=== PATIENT | male | born 1940 | race Caucasian/White ===

== ENCOUNTER 2016-11-09 03:18 | Emergency (ER) | payer BC, OTHER ==
[~2016-11-09] VITALS: Ht 160 cm; Wt 104.3 kg
[2016-11-09 05:27] LABS: Basophils # (auto) 0 uL; Basophils % (auto) 0.3 % (0.0-2.0); Eosinophils # (auto) 0.3 uL; Eosinophils % (auto) 4.5 % (0.0-7.0); Hematocrit 45.1 % (41.0-53.0); Hemoglobin 15.5 g/dL (13.5-17.5); Lymphocytes # (auto) 2.2 uL; Lymphocytes % (auto) 32.5 % (10.0-50.0); Mean Corpuscular Hemoglobin 31.1 pg (28.0-32.0); Mean Corpuscular Hgb Conc. 34.4 g/dL (32.0-36.0); Mean Corpuscular Volume 90.2 fL (80.0-100.0); Mean Platelet Volume 9.2 fL (6.9-10.8); Monocytes # (auto) 0.4 uL; Monocytes % (auto) 5.5 % (0.0-12.0); Neutrophils # (auto) 3.9 uL; Neutrophils % (auto) 57.2 % (37.0-80.0); Nucleated Red Blood Cells % 0.1 %; Platelet Count (auto) 109 10^3/uL (140-450); Red Cell Distribution Width 15.6 % (11.8-14.3); White Blood Cell 6.8 10^3/uL (4.4-10.8)
[2016-11-09 05:41] LABS: INR 1.04 (0.9-1.15); Prothrombin Time 11.3 sec (9.37-12.3)
[2016-11-09 05:45] LABS: Albumin 3.3 g/dL (3.4-5.0); Anion Gap 6 (5-15); Aspartate Aminotransferase 20 U/L (15-37); BUN/Creatinine Ratio 13.3; Blood Urea Nitrogen 13 mg/dL (7-18); Calcium 8.9 mg/dL (8.5-10.1); Carbon Dioxide 27 mmol/L (21-32); Chloride 110 mmol/L (98-107); GFR African American 95 mL/min; GFR Non-African American 79 mL/min; Glucose 88 mg/dL (74-106); Magnesium 2.2 mg/dL (1.6-2.6); Potassium 3.8 mmol/L (3.5-5.1); Sodium 143 mmol/L (136-145)
[2016-11-09 05:50] LABS: Alkaline Phosphatase 83 U/L (45-117); Bilirubin, Total 0.6 mg/dL (0.2-1.0); Total Protein 6.8 g/dL (6.4-8.2)
[2016-11-09 05:52] LABS: B-Type Natriuretic Peptide 71.57 pg/mL (0-100); Temperature: 20.7 C (20.0-25.0)
[2016-11-09] MEDS ORDERED: IOHEXOL 350 MG/ML 100ML IJ ONE (08:04)
[2016-11-09] MEDS ORDERED: ASPirin 81 mg TAB PO ONE (09:30)
[2016-11-09 10:43] VITALS: BP 135/75
== END 2016-11-09 10:41 | disposition home or self-care (01) ==
LOC: EDBD 03:18 → EDUNIT# 03:18 → ER 03:27
DX: R07.89 Other chest pain (principal); Z87.440 Personal history of urinary (tract) infections; Z90.49 Acquired absence of other specified parts of digestive tract
CPT/HCPCS: 36415; 71010; 71275; 80053; 83735; 83880; 84443; 84484; 85025; 85379; 85610; 85730; 93005; 94761; 99285; Q9967

== ENCOUNTER 2020-02-05 17:05 | Emergency (ER) | payer BC ==
[~2020-02-05] VITALS: Ht 172.7 cm; Wt 109.8 kg
[2020-02-05 22:38] VITALS: BP 136/82
== END 2020-02-05 22:36 | disposition home or self-care (01) ==
LOC: ER 17:12
DX: Z46.6 Encounter for fitting and adjustment of urinary device (principal); N30.00 Acute cystitis without hematuria; I10 Essential (primary) hypertension
CPT/HCPCS: 51705; 81002

== ENCOUNTER 2021-03-15 09:01 | Emergency (ER) | payer BC ==
[~2021-03-15] VITALS: Ht 175.3 cm; Wt 77.1 kg
[2021-03-15 09:22] VITALS: BP 114/75
[2021-03-15] MEDS ORDERED: ACET-1080 PO (10:06)
== END 2021-03-15 11:34 | disposition home or self-care (01) ==
LOC: ER 09:01
DX: S63.284A Dislocation of proximal interphalangeal joint of right ring finger, initial encounter (principal); I10 Essential (primary) hypertension; Z90.49 Acquired absence of other specified parts of digestive tract; W06.XXXA Fall from bed, initial encounter; Y93.89 Activity, other specified; Y92.89 Other specified places as the place of occurrence of the external cause; Y99.8 Other external cause status
CPT/HCPCS: 26770; 73120

== ENCOUNTER 2021-04-08 14:03 | Emergency (ER) | payer BC, OTHER ==
[~2021-04-08] VITALS: Ht 170.2 cm; Wt 86.2 kg
[~2021-04-08 14:03] MED LIST: ACET-1080 PO
[2021-04-08 14:55] LABS: Basophils # (auto) 0 10 ^3/uL (0-0.2); Basophils % (auto) 0.3 % (0.0-2.0); Eosinophils # (auto) 0.4 10 ^3/uL (0-0.8); Eosinophils % (auto) 4.7 % (0.0-7.0); Hematocrit 40.3 % (41.0-53.0); Hemoglobin 13.5 g/dL (13.5-17.5); Lymphocytes # (auto) 3.3 10 ^3/uL (0.4-5.4); Lymphocytes % (auto) 38.6 % (10.0-50.0); Mean Corpuscular Hemoglobin 27.7 pg (28.0-32.0); Mean Corpuscular Hgb Conc. 33.6 g/dL (32.0-36.0); Mean Corpuscular Volume 82.2 fL (80.0-100.0); Monocytes # (auto) 0.4 10 ^3/uL (0-1.3); Monocytes % (auto) 4.9 % (0.0-12.0); Neutrophils # (auto) 4.3 10 ^3/uL (1.6-8.6); Neutrophils % (auto) 51.5 % (37.0-80.0); Nucleated Red Blood Cells % 0.1 %; Red Cell Distribution Width 17.4 % (11.8-14.3); White Blood Cell 8.5 10^3/uL (4.4-10.8)
[2021-04-08 15:06] LABS: Albumin 2.7 g/dL (3.4-5.0); BUN/Creatinine Ratio 17.7; Calcium 8.4 mg/dL (8.5-10.1); Magnesium 2.3 mg/dL (1.6-2.6); Potassium 3.8 mmol/L (3.5-5.1)
[2021-04-08 15:11] LABS: Bilirubin, Total 0.4 mg/dL (0.2-1.0); Total Protein 6.7 g/dL (6.4-8.2)
[2021-04-08 20:20] VITALS: BP 121/68
== END 2021-04-08 20:22 | disposition home or self-care (01) ==
LOC: EDBD 14:03 → ER 14:03
DX: R07.89 Other chest pain (principal); I10 Essential (primary) hypertension; Z90.49 Acquired absence of other specified parts of digestive tract; Z87.891 Personal history of nicotine dependence; Z79.899 Other long term (current) drug therapy
CPT/HCPCS: 36415; 71045; 80053; 83735; 83880; 84484; 85025; 93005

== ENCOUNTER 2021-06-24 19:05 | Inpatient (IN) | payer BC ==
[~2021-06-24] VITALS: Ht 170.2 cm; Wt 100.1 kg
[2021-06-24 21:02] LABS: Basophils # (auto) 0 10 ^3/uL (0-0.2); Basophils % (auto) 0.3 % (0.0-2.0); Eosinophils # (auto) 0 10 ^3/uL (0-0.8); Eosinophils % (auto) 0.3 % (0.0-7.0); Hematocrit 43.5 % (41.0-53.0); Hemoglobin 14.7 g/dL (13.5-17.5); Lymphocytes # (auto) 2.1 10 ^3/uL (0.4-5.4); Lymphocytes % (auto) 19.8 % (10.0-50.0); Mean Corpuscular Hemoglobin 27.4 pg (28.0-32.0); Mean Corpuscular Hgb Conc. 33.7 g/dL (32.0-36.0); Mean Corpuscular Volume 81.2 fL (80.0-100.0); Monocytes # (auto) 0.6 10 ^3/uL (0-1.3); Monocytes % (auto) 5.8 % (0.0-12.0); Neutrophils # (auto) 7.9 10 ^3/uL (1.6-8.6); Neutrophils % (auto) 73.8 % (37.0-80.0); Red Blood Cells 5.35 10^6/uL (4.5-5.90); Red Cell Distribution Width 16.7 % (11.8-14.3); White Blood Cell 10.7 10^3/uL (4.4-10.8)
[2021-06-24 21:16] LABS: Calcium 8.4 mg/dL (8.5-10.1); Potassium 3.9 mmol/L (3.5-5.1)
[2021-06-24 21:20] LABS: BUN/Creatinine Ratio 21.9; Bilirubin, Total 0.9 mg/dL (0.2-1.0); Total Protein 6.9 g/dL (6.4-8.2)
[2021-06-25 02:07] LABS: Urine Bacteria MOD /hpf (None Seen); Urine Blood 1+ /uL (Negative); Urine Mucus FEW (None Seen); Urine Specific Gravity 1.017 (1.001-1.035); Urine WBC 487 /hpf (0 - 3); Urine WBC Clumps PRESENT /hpf (None Seen)
[2021-06-25] MEDS ORDERED: cefTRIAXone 1GM/50ML D5W 50 ML IV ONE (02:15)
[2021-06-25 02:17] LABS: Alcohol, Urine < 3.0 mg/dL (0-10); Amphetamine Screen, Urine NEGATIVE (NEGATIVE); Benzodiazephine Screen, Urine NEGATIVE (NEGATIVE); Cannabinoid Screen, Urine NEGATIVE (NEGATIVE); Cocaine Screen, Urine NEGATIVE (NEGATIVE); Opiate Scree,Urine NEGATIVE (NEGATIVE); Phencyclidine Screen, Urine NEGATIVE (NEGATIVE)
[2021-06-25 02:38] LABS: Barbiturate Scree,Urine NEGATIVE (NEGATIVE)
[2021-06-25] MEDS ORDERED: ACETAMINOPHEN 325 MG TAB PO PRN (04:00)
[2021-06-25] MEDS ORDERED: ONDANSETRON HCL 4 MG/2 ML VIAL IV PRN (04:00)
[2021-06-25] MEDS: HCTZ 25 MG TAB PO SCH (10:13)
[2021-06-25] MEDS: MEMANTINE HCL 5 MG TAB PO SCH ×2 (10:13→21:36)
[2021-06-25] MEDS: PANTOPRAZOLE 40 MG TAB PO SCH (10:13)
[2021-06-25] MEDS: METOPROLOL SUCCINATE XL 50 MG TAB PO SCH (10:13)
[2021-06-25] MEDS: ENOXAPARIN SOD 40 MG/0.4 ML SYRINGE SC SCH (10:14)
[2021-06-25 13:00] VITALS: BP 127/60
[2021-06-25 16:10] VITALS: BP 116/74
[2021-06-25 22:00] VITALS: BP 115/61
[2021-06-25] MEDS ORDERED: DONEPEZIL HYDROCHLORIDE 5 MG TAB PO SCH (22:00)
[2021-06-25] MEDS ORDERED: LORazepam 2MG/ML-1ML VIAL IV PRN (22:15)
[2021-06-25 23:42] LABS: Folate (Folic Acid) 8.76 ng/mL (5.38-24)
[2021-06-26] VITALS (7 sets, daily range): BP systolic 108–122; BP diastolic 47–62
[2021-06-26 06:17] LABS: Basophils # (auto) 0 10 ^3/uL (0-0.2); Basophils % (auto) 0.2 % (0.0-2.0); Eosinophils # (auto) 0.2 10 ^3/uL (0-0.8); Eosinophils % (auto) 2.3 % (0.0-7.0); Hematocrit 39.7 % (41.0-53.0); Hemoglobin 13.4 g/dL (13.5-17.5); Lymphocytes # (auto) 1.8 10 ^3/uL (0.4-5.4); Lymphocytes % (auto) 24.9 % (10.0-50.0); Mean Corpuscular Hemoglobin 27.6 pg (28.0-32.0); Mean Corpuscular Hgb Conc. 33.8 g/dL (32.0-36.0); Mean Corpuscular Volume 81.7 fL (80.0-100.0); Monocytes # (auto) 0.6 10 ^3/uL (0-1.3); Monocytes % (auto) 8.7 % (0.0-12.0); Neutrophils # (auto) 4.5 10 ^3/uL (1.6-8.6); Neutrophils % (auto) 63.9 % (37.0-80.0); Nucleated Red Blood Cells % 0.2 %; Red Blood Cells 4.86 10^6/uL (4.5-5.90); Red Cell Distribution Width 16.8 % (11.8-14.3)
[2021-06-26 06:27] LABS: Calcium 8.5 mg/dL (8.5-10.1); Potassium 3.3 mmol/L (3.5-5.1)
[2021-06-26 06:35] LABS: BUN/Creatinine Ratio 21.3
[2021-06-26] MEDS ORDERED: LEVO500T31 PO (07:52)
[2021-06-26] MEDS ORDERED: cefTRIAXone 1GM/50ML D5W 50 ML IV SCH (09:00)
[2021-06-26] MEDS: ENOXAPARIN SOD 40 MG/0.4 ML SYRINGE SC SCH (09:06)
[2021-06-26] MEDS: METOPROLOL SUCCINATE XL 50 MG TAB PO SCH (09:07)
[2021-06-26] MEDS: PANTOPRAZOLE 40 MG TAB PO SCH (09:07)
[2021-06-26] MEDS: MEMANTINE HCL 5 MG TAB PO SCH (09:07)
[2021-06-26] MEDS: HCTZ 25 MG TAB PO SCH (09:14)
[2021-06-26] MEDS ORDERED: CYANOCOBALAMIN (B-12) 1000 MCG/1 ML VIAL IM ONE (10:00)
[2021-06-26] MEDS ORDERED: ASPirin 81 mg TAB PO SCH (10:00)
[2021-06-26] MEDS ORDERED: ATORVASTATIN 20 MG TAB PO SCH (22:00)
[2021-06-27] MEDS ORDERED: CYANOCOBALAMIN 500 MCG TAB PO SCH (10:00)
== END 2021-06-26 18:27 | disposition home health service (06) | DRG 689 ==
LOC: ER 19:05 → EDBD 19:05 → WEST WING 06-25 03:47 → OVERFLOW 06-25 04:22 → EAST 06-25 13:15
PROVIDERS: ADMIT Nurse Practitioner; ATTEND Internal Medicine Pulmonary Disease
DX: N39.0 Urinary tract infection, site not specified (principal); G93.41 Metabolic encephalopathy; F03.90 Unspecified dementia, unspecified severity, without behavioral disturbance, psychotic disturbance, mood disturbance, and anxiety; I10 Essential (primary) hypertension; R62.7 Adult failure to thrive; Z20.822 Contact with and (suspected) exposure to COVID-19; R26.2 Difficulty in walking, not elsewhere classified; Z79.899 Other long term (current) drug therapy; Z82.3 Family history of stroke; Z82.49 Family history of ischemic heart disease and other diseases of the circulatory system; Z83.3 Family history of diabetes mellitus; Z93.59 Other cystostomy status; Z90.49 Acquired absence of other specified parts of digestive tract
CPT/HCPCS: 36415; 70450; 70551; 71045; 80048; 80053; 80061; 80307; 81001; 82140; 82607; 82746; 83090; 83735; 84443; 84484; 85025; 87040; 87086; 87088; 87186; 93886; 95819; 96365; 96372; G0378; J0696

== ENCOUNTER 2021-11-09 09:37 | Emergency (ER) | payer BC ==
[~2021-11-09] VITALS: Ht 180.3 cm; Wt 90.9 kg
[~2021-11-09 09:37] MED LIST changes: +LEVO500T31 PO
[2021-11-09] MEDS ORDERED: SODIUM CHLORIDE 0.9% 1,000 ML IV ONE (10:15)
[2021-11-09] MEDS ORDERED: ADENOSINE 6 MG/2 ML INJ IV ONE (10:45)
[2021-11-09 10:58] LABS: Eosinophils # (auto) 0 10 ^3/uL (0-0.8); Hematocrit 48.4 % (41.0-53.0); Red Blood Cells 5.79 10^6/uL (4.5-5.90); Red Cell Distribution Width 16.4 % (11.8-14.3)
[2021-11-09 10:59] LABS: Basophils # (auto) 0 10 ^3/uL (0-0.2); Basophils % (auto) 0.4 % (0.0-2.0); Eosinophils % (auto) 0.2 % (0.0-7.0); Hemoglobin 15.8 g/dL (13.5-17.5); Lymphocytes # (auto) 1.6 10 ^3/uL (0.4-5.4); Lymphocytes % (auto) 13.2 % (10.0-50.0); Mean Corpuscular Hemoglobin 27.2 pg (28.0-32.0); Mean Corpuscular Hgb Conc. 32.6 g/dL (32.0-36.0); Mean Corpuscular Volume 83.6 fL (80.0-100.0); Monocytes # (auto) 0.7 10 ^3/uL (0-1.3); Monocytes % (auto) 5.8 % (0.0-12.0); Neutrophils # (auto) 9.6 10 ^3/uL (1.6-8.6); Neutrophils % (auto) 80.4 % (37.0-80.0); Nucleated Red Blood Cells % 0.1 %; White Blood Cell 11.9 10^3/uL (4.4-10.8)
[2021-11-09 11:14] LABS: Albumin 3.1 g/dL (3.4-5.0); Calcium 8.6 mg/dL (8.5-10.1); Magnesium 2.1 mg/dL (1.6-2.6)
[2021-11-09] MEDS ORDERED: AMIODARONE HCL 150 MG in D5W 5% 100 ML IV ONE (11:15)
[2021-11-09] MEDS ORDERED: ACETAMINOPHEN 650 MG RECT SUPP PR ONE (11:15)
[2021-11-09 11:17] LABS: Bilirubin, Total 1.2 mg/dL (0.2-1.0)
[2021-11-09] MEDS ORDERED: AMIODARONE 450mg/250ml AE 250 ML IV SCH ×2 (11:30→17:30)
[2021-11-09] MEDS ORDERED: ACETAMINOPHEN 325 MG RECT SUPP PR ONE (11:30)
[2021-11-09] MEDS ORDERED: cefTRIAXone 1GM/50ML D5W 50 ML IV ONE (12:30)
[2021-11-09 12:49] LABS: Urine Bacteria FEW /hpf (None Seen); Urine Blood 2+ /uL (Negative); Urine Specific Gravity 1.017 (1.001-1.035); Urine WBC 1466 /hpf (0 - 3); Urine WBC Clumps PRESENT /hpf (None Seen)
[2021-11-09] MEDS ORDERED: dilTIAZem 25 MG/5 ML VIAL IV ONE (15:15)
[2021-11-09] MEDS ORDERED: METOPROLOL TARTRATE 25 MG TAB PO ONE ×2 (15:15→16:30)
[2021-11-09] MEDS ORDERED: BACDST PO (16:35)
[2021-11-09] MEDS ORDERED: MET25T PO (16:35)
[2021-11-09] MEDS ORDERED: APIX5TAB PO (16:35)
[2021-11-09 17:20] VITALS: BP 115/51
== END 2021-11-09 17:32 | disposition home or self-care (01) ==
LOC: EDBD 09:37 → ER 09:37
DX: I47.1 Supraventricular tachycardia (principal); F03.90 Unspecified dementia, unspecified severity, without behavioral disturbance, psychotic disturbance, mood disturbance, and anxiety; R53.1 Weakness; I10 Essential (primary) hypertension; Z90.49 Acquired absence of other specified parts of digestive tract; Z87.891 Personal history of nicotine dependence; Z20.822 Contact with and (suspected) exposure to COVID-19
CPT/HCPCS: 36415; 70450; 71045; 80053; 81001; 83605; 83735; 84484; 85025; 87040; 87426; 93005; 96361; 96365; 96367; 96375; 99285; J0153; J0282; J0696; J7030; J7060

== ENCOUNTER 2021-11-09 20:35 | Emergency (ER) | payer BC ==
[~2021-11-09] VITALS: Ht 172.7 cm; Wt 113.0 kg
[~2021-11-09 20:35] MED LIST changes: +APIX5TAB PO; +BACDST PO; +MET25T PO
[2021-11-09] MEDS ORDERED: SODIUM CHLORIDE 0.9% 1,000 ML IV ONE ×2 (22:15→23:45)
[2021-11-09] MEDS ORDERED: PIPERACILLIN-TAZOB 3.375GM 100 ML IV ONE (23:45)
[2021-11-10] MEDS ORDERED: ACETAMINOPHEN 650 MG RECT SUPP PR ONE
[2021-11-10 00:06] LABS: Basophils # (auto) 0.2 10 ^3/uL (0-0.2); Basophils % (auto) 1.5 % (0.0-2.0); Eosinophils # (auto) 0 10 ^3/uL (0-0.8); Eosinophils % (auto) 0.4 % (0.0-7.0); Hematocrit 45.2 % (41.0-53.0); Hemoglobin 14.9 g/dL (13.5-17.5); Lymphocytes # (auto) 0.9 10 ^3/uL (0.4-5.4); Lymphocytes % (auto) 7.9 % (10.0-50.0); Mean Corpuscular Hemoglobin 27.8 pg (28.0-32.0); Mean Corpuscular Hgb Conc. 32.9 g/dL (32.0-36.0); Mean Corpuscular Volume 84.4 fL (80.0-100.0); Monocytes # (auto) 0.6 10 ^3/uL (0-1.3); Monocytes % (auto) 5.1 % (0.0-12.0); Neutrophils # (auto) 9.6 10 ^3/uL (1.6-8.6); Neutrophils % (auto) 85.1 % (37.0-80.0); Nucleated Red Blood Cells % 0.1 %; Red Blood Cells 5.35 10^6/uL (4.5-5.90); Red Cell Distribution Width 16.5 % (11.8-14.3); White Blood Cell 11.2 10^3/uL (4.4-10.8)
[2021-11-10 00:25] LABS: Albumin 2.9 g/dL (3.4-5.0); BUN/Creatinine Ratio 14.8; Calcium 8.4 mg/dL (8.5-10.1); Potassium 4.2 mmol/L (3.5-5.1)
[2021-11-10 00:27] LABS: Bilirubin, Total 1.2 mg/dL (0.2-1.0)
[2021-11-10 00:29] LABS: Lactic Acid w/Reflex 2.6 mmol/L (0.4-2.0)
[2021-11-10] MEDS ORDERED: ACETAMINOPHEN 120 MG RECT SUPP PR ONE ×2 (01:00→03:15)
[2021-11-10] MEDS ORDERED: SODIUM CHLORIDE 0.9% 1,000 ML IV ONE (10:30)
[2021-11-10] MEDS: PIPERACILLIN-TAZOB 3.375GM 100 ML IV SCH ×3 (11:39→18:26)
[2021-11-10 18:27] VITALS: BP 133/88
== END 2021-11-10 18:28 | disposition home health service (06) ==
LOC: ER 20:35 → EDBD 20:35 → ER 11-10 18:28
DX: R53.1 Weakness (principal); E86.0 Dehydration; F03.90 Unspecified dementia, unspecified severity, without behavioral disturbance, psychotic disturbance, mood disturbance, and anxiety; I10 Essential (primary) hypertension; Z90.49 Acquired absence of other specified parts of digestive tract; Z87.891 Personal history of nicotine dependence; Z79.899 Other long term (current) drug therapy; Z20.822 Contact with and (suspected) exposure to COVID-19
CPT/HCPCS: 36415; 70450; 80053; 83605; 85025; 87426; 93005; 96361; 96365; 96366; 99285; J2543; J7030

== ENCOUNTER 2023-03-13 19:05 | Emergency (ER) | payer OTHER, BC ==
[~2023-03-13] VITALS: Ht 182.9 cm; Wt 100.0 kg
[2023-03-13 20:05] VITALS: PULSE 61; RESP 16; TEMP 99; O2SAT 96
[2023-03-13 20:13] LABS: Basophils # (auto) 0 10 ^3/uL (0-0.2); Basophils % (auto) 0.3 % (0.0-2.0); Eosinophils # (auto) 0.5 10 ^3/uL (0-0.8); Eosinophils % (auto) 5.4 % (0.0-7.0); Hematocrit 43.1 % (41.0-53.0); Hemoglobin 13.9 g/dL (13.5-17.5); Lymphocytes # (auto) 3.8 10 ^3/uL (0.4-5.4); Mean Corpuscular Hemoglobin 28.7 pg (28.0-32.0); Mean Corpuscular Hgb Conc. 32.3 g/dL (32.0-36.0); Mean Corpuscular Volume 88.8 fL (80.0-100.0); Monocytes # (auto) 0.5 10 ^3/uL (0-1.3); Monocytes % (auto) 6.4 % (0.0-12.0); Neutrophils # (auto) 3.7 10 ^3/uL (1.6-8.6); Neutrophils % (auto) 43.9 % (37.0-80.0); Nucleated Red Blood Cells % 0.2 %; Red Blood Cells 4.86 10^6/uL (4.5-5.90); Red Cell Distribution Width 16.4 % (11.8-14.3); White Blood Cell 8.5 10^3/uL (4.4-10.8)
[2023-03-13 20:21] LABS: Alanine Aminotransferase 13 U/L (7-40); Albumin 3.8 g/dL (3.2-4.8); Alkaline Phosphatase 91 U/L (46-116); Anion Gap 1 (5-15); Aspartate Aminotransferase 17 U/L (13-40); BUN/Creatinine Ratio 13.3 (10.0-20.0); Bilirubin, Total 0.4 mg/dL (0.2-1.0); Blood Urea Nitrogen 16 mg/dL (9-23); Calcium 8.7 mg/dL (8.7-10.4); Carbon Dioxide 33 mmol/L (20-30); Chloride 105 mmol/L (98-107); Glucose 84 mg/dL (74-106); Lipase 27 U/L (12-53); Potassium 4.2 mmol/L (3.5-5.1); Sodium 139 mmol/L (136-145); Total Protein 6.8 g/dL (5.7-8.2)
[2023-03-13 20:44] LABS: Urine Blood 3+ /uL (Negative); Urine Clarity HAZY (Clear); Urine Color Yellow (Yellow); Urine Protein, UAD TRACE (Negative); Urine Specific Gravity 1.018 (1.001-1.035); Urine Urobilinogen Normal (Negative); Urine pH 5.5 (5.0-8.0)
[2023-03-13] MEDS: cefTRIAXone 1GM/50ML D5W 50 ML IV ONE (21:17)
[2023-03-13 21:48] VITALS: BP 134/72; PULSE 61; RESP 16; O2SAT 97
== END 2023-03-13 22:00 | disposition home or self-care (01) ==
LOC: EDBD 19:05 → ER 19:05
DX: N39.0 Urinary tract infection, site not specified (principal); R07.9 Chest pain, unspecified; I10 Essential (primary) hypertension; Z90.49 Acquired absence of other specified parts of digestive tract; Z87.891 Personal history of nicotine dependence
CPT/HCPCS: 36415; 80053; 81003; 83690; 85025; 93005; 96365; 99284; J0696

== ENCOUNTER 2024-01-21 13:33 | Inpatient (IN) | payer BC, OTHER ==
[~2024-01-21] VITALS: Ht 170.2 cm; Wt 114.1 kg
[2024-01-21] MEDS: SODIUM CHLORIDE 0.9% 500 ML IV ONE (15:12)
[2024-01-21 15:14] LABS: Basophils # (auto) 0 10 ^3/uL (0-0.2); Basophils % (auto) 0.4 % (0.0-2.0); Eosinophils # (auto) 0.2 10 ^3/uL (0-0.8); Hematocrit 37.5 % (41.0-53.0); Hemoglobin 11.9 g/dL (13.5-17.5); Lymphocytes # (auto) 1.1 10 ^3/uL (0.4-5.4); Lymphocytes % (auto) 19.9 % (10.0-50.0); Mean Corpuscular Hemoglobin 25.3 pg (28.0-32.0); Mean Corpuscular Hgb Conc. 31.7 g/dL (32.0-36.0); Mean Corpuscular Volume 79.7 fL (80.0-100.0); Monocytes # (auto) 0.3 10 ^3/uL (0-1.3); Monocytes % (auto) 5.8 % (0.0-12.0); Neutrophils % (auto) 70.9 % (37.0-80.0); Platelet Count (auto) 146 10^3/uL (140-450); Red Cell Distribution Width 17.1 % (11.8-14.3); White Blood Cell 5.6 10^3/uL (4.4-10.8)
--- NOTE | 2024-01-21 15:23 | DVH ---
CLINICAL INFORMATION: 83 years old, Male; weakness. TECHNIQUE: Single AP portable chest radiograph was obtained. COMPARISON: CHEST PORTABLE on DOS: 11/09/21, CXRP on DOS: 11/09/21, CHEST PORTABLE on DOS: 06/24/21 FINDINGS: Lungs: Atelectasis in the lung bases. No focal consolidation visualized. No pneumothorax. Left costop hrenic angle is partially obscured. Cardiac: Heart size is within normal limits. Pulmonary vasculature: Unremarkable. Mediastinum/sulaiman: Moderate atherosclerotic calcification of the aortic arch. Bones: No acute osseous abnormality identified. Other: No other significant findings. IMPRESSION: No evidence of acute disease in the chest. Nonacute findings as described above.
[2024-01-21 15:24] LABS: Urine Bacteria MANY /hpf (None Seen); Urine Blood 1+ /uL (Negative); Urine Clarity Ex.Turbid (Clear); Urine Color Dark-Brown (Yellow); Urine Mucus FEW (None Seen); Urine Protein, UAD 3+ (Negative); Urine Specific Gravity 1.014 (1.001-1.035); Urine Urobilinogen Normal (Negative); Urine WBC 3916 /hpf (0 - 3); Urine WBC Clumps PRESENT /hpf (None Seen); Urine pH 6.5 (5.0-9.0)
[2024-01-21 15:27] LABS: Potassium 3.7 mmol/L (3.5-5.1)
[2024-01-21 15:28] LABS: Anion Gap 4 (5-15); Carbon Dioxide 30 mmol/L (20-31)
[2024-01-21 15:33] LABS: BUN/Creatinine Ratio 13.1 (10.0-20.0); Blood Urea Nitrogen 16 mg/dL (9-23); Glucose 101 mg/dL (74-106)
[2024-01-21 15:34] LABS: Chloride 112 mmol/L (98-107); Sodium 146 mmol/L (136-145)
[2024-01-21 15:46] VITALS: PULSE 65; RESP 20; O2SAT 95
--- NOTE | 2024-01-21 16:26 | ED.PDOC ---
History of Present Illness HPI Comments This is an 83-year-old male who comes in with chief complaint of fever as well as altered mental status. The patient lives at home and had a temperature of approximately 103. The patient was nonverbal and bed ridden. EN route, the patient also had an Accu-Chek of 109. We attempted to interview the patient but he is altered at this time. It seems to be somewhat of his baseline. Chief Complaint: Fever Time Seen by MD: 13:51 Primary Care Provider: UNKNOWN Reviewed Notes: Nurses Notes, Blood Bank Credit Clerk Notes, Medications, Allergies (No allergies to medications) Allergies: Coded Allergies: NO KNOWN ALLERGIES (Unverified , 04/08/21) Home Meds Active Scripts Sulfamethoxazole W/Trimethopri (Bactrim Ds Tablet) 1 Tab Tb, 1 TAB PO BID for 10 Days, #20 TAB Prov:NOLAN ZENDEJAS MD 11/09/21 Apixaban Base (ELIQUIS) 5 Mg Tab, 5 MG PO BID for 30 Days, #60 TAB 1 Refill Prov:NOLAN ZENDEJAS MD 11/09/21 Metoprolol Tartrate (Lopressor) 25 Mg Tb, 25 MG PO Q12HR for 30 Days, #60 TAB 1 Refill Prov:NOLAN ZENDEJAS MD 11/09/21 Levofloxacin (Levaquin) 500 Mg Tab, 500 MG PO DAILY for 10 Days, #10 TAB Prov:NOLAN ZENDEJAS MD 06/26/21 Acetaminophen (Tylenol 8 Hour Arthritis) 650 Mg Tab, 650 MG PO TID for 10 Days, #30 TAB Prov:ROEL SPENCE 03/15/21 Information Source: Emergency Med Personnel Mode of Arrival: EMS Severity: Moderate Timing: Days Duration: Since onset Prehospital treatment: Accucheck (109), Cardiovascular Lab Director, IVF Associated signs and symptoms Associated fever with a generalized weakness Past Medical History PAST MEDICAL HISTORY: AFIB, Alzheimer, Dementia, HTN, UTI'S Surgical History: Cholecystectomy Family History Family History: Unknown Social History Smoker: Non-Smoker, Quit Greater Than 1 Year Alcohol: Denies ETOH Use Drugs: Denies Drug Use Lives In: Home Constitutional: reports: fever, weakness; denies: chills, diaphoresis, fatigue, malaise, sweats, others EENTM: denies: blurred vision, double vision, ear bleeding, ear discharge, ear drainage, ear pain, ear ringing, eye pain, eye redness, hearing loss, mouth pain, mouth swelling, nasal discharge, nose bleeding, nose congestion, nose pain, photophobia, tearing, throat pain, throat swelling, voice changes, others Respiratory: denies: cough, hemoptysis, orthopnea, SOB at rest, shortness of breath, SOB with excertion, stridor, wheezing, others Cardiovascular: denies: chest pain, dizzy spells, diaphoresis, Dyspnea on exertion, edema, irregular heart beat, left arm pain, lightheadedness, palpitations, PND, syncope, others Gastrointestinal: denies: abdomen distended, abdominal pain, blood streaked bowels, constipated, diarrhea, dysphagia, difficulty swallowing, hematemesis, melena, nausea, poor appetite, poor fluid intake, rectal bleeding, rectal pain, vomiting, others Genitourinary: denies: burning, dysuria, flank pain, frequency, hematuria, incontinence, penile discharge, penile sore, pain, testicle pain, testicle swelling, urgency, others Neurological: reports: weakness, others (Altered mental status); denies: dizziness, fainting, headache, left sided numbness, left sided weakness, numbness, paresthesia, pre-existing deficit, right sided numbness, right sided weakness, seizure, speech problems, tingling, tremors Musculoskeletal: denies: back pain, gout, joint pain, joint swelling, muscle pain, muscle stiffness, neck pain, others Integumetry: denies: bruises, change in color, change in hair/nails, dryness, laceration, lesions, lumps, rash, wounds, others Allergic/Immunocompromised: denies: Difficulty Healing, Frequent Infections, Hives, Itching, others Hematologic/Lymphatic: denies: anemia, blood clots, easy bleeding, easy bruising, swollen glands, others Endocrine: denies: excessive hunger, excessive sweating, excessive thirst, excessive urination, flushing, intolerance to cold, intolerance to heat, unexplained weight gain, unexplained weight loss, others Psychiatric: denies: anxiety, bipolar disorder, depression, hopeless, panic disorder, schizophrenia, sleepless, suicidal, others Physical Exam General Appearance: Moderate Distress HEENT: Normal ENT Inspection, Pharynx Normal, TMs Normal Neck: Full Range of Motion, Non-Tender, Normal, Normal Inspection Respiratory: Chest Non-Tender, Lungs Clear, No Accessory Muscle Use, No Respiratory Distress, Normal Breath Sounds Cardiovascular: No Edema, No JVD, No Murmur, No Gallop, Normal Peripheral Pulses, Regular Rate/Rhythm Breast Exam: Deferred Gastrointestinal: No Organomegaly, Non Tender, No Pulsatile Mass, Normal Bowel Sounds, Soft Genitalia: Deferred Pelvic: Deferred Rectal: Deferred Extremities: No calf tenderness, Normal capillary refill, No pedal edema Musculoskeletal : Apperance: Normal Neurologic: hosiery knitter II-XII nml as Tested, Motor Weakness, No Sensory Deficits, Other (Altered mental status) Cerebellar Function: Unable to Test Reflexes: Normal Skin: Dry, Pallor, Warm Lymphatic: No Adenopathy Was a procedure done? Was a procedure done?: No Differential Dx Considerations may include: Sepsis, altered mental status, UTI X-Ray, Labs, Meds, VS Vital Signs Date Time Temp Pulse Resp B/P (MAP) Pulse Ox O2 Delivery O2 Flow Rate FiO2 01/21/24 15:46 65 20 95 Nasal Cannula* 2 28 01/21/24 15:46 98.7 65 18 142/92 (109) 96 98.7 01/21/24 13:43 98.7 77 20 143/64 (90) 92 Lab Test 01/21/24 14:54 01/21/24 14:45 Range/Units White Blood Count 5.6 4.4-10.8 10^3/uL Red Blood Count 4.70 4.5-5.90 10^6/uL Hemoglobin 11.9 L 13.5-17.5 g/dL Hematocrit 37.5 L 41.0-53.0 % Mean Corpuscular Volume 79.7 L 80.0-100.0 fL Mean Corpuscular Hemoglobin 25.3 L 28.0-32.0 pg Mean Corpuscular Hemoglobin Concent 31.7 L 32.0-36.0 g/dL Red Cell Distribution Width 17.1 H 11.8-14.3 % Platelet Count 146 140-450 10^3/uL Mean Platelet Volume 8.7 6.9-10.8 fL Neutrophils (%) (Auto) 70.9 37.0-80.0 % Lymphocytes (%) (Auto) 19.9 10.0-50.0 % Monocytes (%) (Auto) 5.8 0.0-12.0 % Eosinophils (%) (Auto) 3.0 0.0-7.0 % Basophils (%) (Auto) 0.4 0.0-2.0 % Neutrophils # (Auto) 4.0 1.6-8.6 10 ^3/uL Lymphocytes # (Auto) 1.1 0.4-5.4 10 ^3/uL Monocytes # (Auto) 0.3 0-1.3 10 ^3/uL Eosinophils # (Auto) 0.2 0-0.8 10 ^3/uL Basophils # (Auto) 0 0-0.2 10 ^3/uL Nucleated Red Blood Cells 0.0 % Sodium Level 146 H 136-145 mmol/L Potassium Level 3.7 3.5-5.1 mmol/L Chloride Level 112 H 98-107 mmol/L Carbon Dioxide Level 30 20-31 mmol/L Anion Gap 4 L 5-15 Blood Urea Nitrogen 16 9-23 mg/dL Creatinine 1.22 0.700-1.30 mg/dL Glomerular Filtration Rate Calc 58 >90 mL/min BUN/Creatinine Ratio 13.1 10.0-20.0 Serum Glucose 101 74-106 mg/dL Lactic Acid Level 1.1 0.4-2.0 mmol/L Calcium Level 9.0 8.7-10.4 mg/dL Urine Color Dark-brown Yellow Urine Clarity Ex.turbid Clear Urine pH 6.5 5.0-9.0 Urine Specific [place] 1.014 1.001-1.035 Urine Protein 3+ H Negative Urine Ketones Negative Negative Urine Blood 1+ H Negative /uL Urine Nitrite 2+ H Negative Urine Bilirubin Negative Negative Urine Urobilinogen Normal Negative mg/dL Urine Leukocyte Esterase 3+ Negative /uL Urine RBC 34 0 - 3 /hpf Urine WBC 3916 0 - 3 /hpf Urine WBC Clumps Present None Seen /hpf Urine Squamous Epithelial Cells Mod <5 /hpf Urine Bacteria Many H None Seen /hpf Urine Mucus Few None Seen Urine Glucose Normal Normal mg/dL Current Medications Medications (Trade) Dose Ordered Sig/Jennifer Route Start Time Stop Time Status Last Admin Sodium Chloride 500 ml @ 500 mls/hr Q1H ONCE IV 01/21/24 14:45 01/21/24 15:44 DC 01/21/24 15:12 The chest x-ray is negative An IV Hep-Lock was established The patient was given normal saline at 500 cc bolus The urine test is positive for a UTI. The patient's CBC and chemistry panel is shows anemia with a hemoglobin of 11.9 The hematocrit of 37.5 At this time, patient will be admitted to the hospitalist The patient was being started on Rocephin 1 g IV piggyback The patient was being admitted at this time Images Reviewed?: Images reviewed and evaluated by me Time of 1ST Reevaluation: 16:24 Reevaluation 1ST: Unchanged Patient Education/Counseling: Pt Unresponsive Family Education/Counseling: No Family Present Departure 1 Departure Time of Disposition: 16:26 Impression: Primary Impression: Acute cystitis Qualified Codes: N30.01 - Acute cystitis with hematuria Additional Impressions: Failure to thrive in adult Generalized weakness Disposition: 09 ADMITTED INPATIENT Admit to: Med Surg Condition: Fair Critical Care Note Critical Care Time?: Yes (35 min-critical care time only) Stability Stability form required: Yes Unstable for transfer: Telemetry monitoring (Telemetry monitoring required), ED Physician Assesment (Clinical assesment) Heart Score Heart Score: Heart Score Response (Comments) Value History N/A 0 EKG N/A 0 Age N/A 0 Risk Factors N/A 0 Troponin N/A 0 Total 0 WILSON ARRINGTON MD Jan 21, 2024 16:26
[2024-01-21] MEDS: cefTRIAXone 1GM/50ML D5W 50 ML IV ONE (16:48)
[2024-01-21] MEDS ORDERED: ACETAMINOPHEN 325 MG TAB PO PRN (17:15)
[2024-01-21] MEDS ORDERED: DOCUSATE SOD 100 MG CAP PO PRN (17:15)
[2024-01-21] MEDS ORDERED: ONDANSETRON HCL 4 MG/2 ML VIAL IV PRN (17:15)
[2024-01-21] MEDS ORDERED: HYDROcodone-ACET 5/325MG TAB PO PRN (17:15)
[2024-01-21] MEDS ORDERED: MAALOX PLUS or MAALOX 30 ML PO PRN (17:15)
--- NOTE | 2024-01-21 17:48 | DVHHP2 ---
History of Present Illness Reason for Visit: weakness History of Present Illness 83-year-old male with a past medical history of dementia due to Alzheimer's AFib hypertension recurrent UTIs comes to the ED with change in mentation apparently according to the family the patient has had high fevers and has not been feeling himself for the last day or 2 patient was brought in for a full evaluation in the ED patient was recommended for inpatient management and care and continued management and being on the floor Cardiovascular: AFIB, CAD, HTN Pulmonary: COPD MAGISTRATE JUDGE: Dementia Review of Systems Constitutional: Yes: Fever, Weakness; No: Chills, Sweats, Malaise, Other Eyes: No: Pain, Vision change, Conjunctivae inflammation, Eyelid inflammation, Other, Redness ENT: No: Ear pain, Ear discharge, Nose pain, Nose discharge, Nose congestion, Mouth pain, Mouth swelling, Throat pain, Throat swelling, Other Respiratory: No: Cough, Dry, Shortness of breath, SOB with excertion, Wheezing, Hemoptysis, Pleuritic Pain, Sputum, Wheezing, Other Cardiovascular: No: Chest Pain, Palpitations, Orthopnea, Paroxysmal Noc. Dyspnea, Edema, Lt Headedness, Other Gastrointestinal: No: Nausea, Vomiting, Abdominal Pain, Diarrhea, Constipation, Melena, Hematochezia, Other Genitourinary: Dysuria, Frequency, Incontinence; No Hematuria, No Retention, No Other Musculoskeletal: No: other, neck pain, shoulder pain, arm pain, back pain, hand pain, leg pain, foot pain Skin: No: Rash, Lesions, Jaundice, Bruising, Other Neurological: No: Weakness, Numbness, Incoordination, Change in speech, Confusion, Seizures, Other Allergies: Coded Allergies: NO KNOWN ALLERGIES (Unverified , 04/08/21) Exam Vital Signs Vital Signs Date Time Temp Pulse Resp B/P (MAP) Pulse Ox O2 Delivery O2 Flow Rate FiO2 01/21/24 15:46 65 20 95 Nasal Cannula* 2 28 01/21/24 15:46 98.7 142/92 (109) 98.7 General Appearance: Alert, Oriented X3, Cooperative, moderate distress HEENT: Atraumatic, PERRLA, EOMI Respiratory: Clear to auscultation, Normal air movement Cardiovascular: Regular rate, Normal S1, Normal S2 Abdominal: Normal bowel sounds, No tenderness Extremities: No clubbing, No cyanosis, No edema Skin: No rashes, No breakdown Neuro: Normal gait, Normal speech Psych/Mental Status: Mood NL Labs/Xrays Labs Test 01/21/24 14:54 01/21/24 14:45 Range/Units White Blood Count 5.6 4.4-10.8 10^3/uL Red Blood Count 4.70 4.5-5.90 10^6/uL Hemoglobin 11.9 L 13.5-17.5 g/dL Hematocrit 37.5 L 41.0-53.0 % Mean Corpuscular Volume 79.7 L 80.0-100.0 fL Mean Corpuscular Hemoglobin 25.3 L 28.0-32.0 pg Mean Corpuscular Hemoglobin Concent 31.7 L 32.0-36.0 g/dL Red Cell Distribution Width 17.1 H 11.8-14.3 % Platelet Count 146 140-450 10^3/uL Mean Platelet Volume 8.7 6.9-10.8 fL Neutrophils (%) (Auto) 70.9 37.0-80.0 % Lymphocytes (%) (Auto) 19.9 10.0-50.0 % Monocytes (%) (Auto) 5.8 0.0-12.0 % Eosinophils (%) (Auto) 3.0 0.0-7.0 % Basophils (%) (Auto) 0.4 0.0-2.0 % Neutrophils # (Auto) 4.0 1.6-8.6 10 ^3/uL Lymphocytes # (Auto) 1.1 0.4-5.4 10 ^3/uL Monocytes # (Auto) 0.3 0-1.3 10 ^3/uL Eosinophils # (Auto) 0.2 0-0.8 10 ^3/uL Basophils # (Auto) 0 0-0.2 10 ^3/uL Nucleated Red Blood Cells 0.0 % Sodium Level 146 H 136-145 mmol/L Potassium Level 3.7 3.5-5.1 mmol/L Chloride Level 112 H 98-107 mmol/L Carbon Dioxide Level 30 20-31 mmol/L Anion Gap 4 L 5-15 Blood Urea Nitrogen 16 9-23 mg/dL Creatinine 1.22 0.700-1.30 mg/dL Glomerular Filtration Rate Calc 58 >90 mL/min BUN/Creatinine Ratio 13.1 10.0-20.0 Serum Glucose 101 74-106 mg/dL Lactic Acid Level 1.1 0.4-2.0 mmol/L Calcium Level 9.0 8.7-10.4 mg/dL Urine Color Dark-brown Yellow Urine Clarity Ex.turbid Clear Urine pH 6.5 5.0-9.0 Urine Specific [place] 1.014 1.001-1.035 Urine Protein 3+ H Negative Urine Ketones Negative Negative Urine Blood 1+ H Negative /uL Urine Nitrite 2+ H Negative Urine Bilirubin Negative Negative Urine Urobilinogen Normal Negative mg/dL Urine Leukocyte Esterase 3+ Negative /uL Urine RBC 34 0 - 3 /hpf Urine WBC 3916 0 - 3 /hpf Urine WBC Clumps Present None Seen /hpf Urine Squamous Epithelial Cells Mod <5 /hpf Urine Bacteria Many H None Seen /hpf Urine Mucus Few None Seen Urine Glucose Normal Normal mg/dL Assessment/Plan Assessment/Plan Admit to [facility] Change in mentation in a patient with dementia Believed to be secondary to acute cystitis with severe urinary tract infection Urinalysis shows +3 bacteria +3 leukocytes and a purulent like discharge Patient will be treated with IV antibiotics IV hydration acute management of change in mentation in the setting of acute infection Antibiotics were already started in the ED we will continue with same antibiotics on the floor and Continue with other patient's home medications Including medications for hypertension And medications for AFib Metoprolol 25 mg b.i.d. to be continued Apixaban 5 mg b.i.d. to be continued Plan discussed with: Patient My Orders Orders - WHITNEY MAY MD Procedure Category Date Status Time Ceftriaxone Ivpb PHA 01/22/24 Transmitted Rocephin 10:00 Apixaban (Eliquis) PHA 01/21/24 Transmitted 22:00 Metoprolol Tartrate PHA 01/21/24 Transmitted Tablet (Lopressor Ta 22:00 Admit ADMIT 01/21/24 Transmitted 17:13 Code Status CODE 01/21/24 Transmitted 17:13 Vital Signs YOLANDE 01/21/24 Transmitted 17:13 Review Orders With YOLANDE 01/21/24 Transmitted Adm. 17:13 Regular Diet DIET 01/21/24 Transmitted Dinner Sodium Chloride 0.9% PHA 01/21/24 Transmitted 17:15 Alum & Mag PHA 01/21/24 Transmitted Hydrox-Simethicone 17:15 Docusate Sodium PHA 01/21/24 Transmitted Capsule (Colace 17:15 Acetaminophen Tablet PHA 01/21/24 Transmitted (Tylenol Tablet) 17:15 Notify Md Of Changes [facility] 01/21/24 Transmitted From Base 17:13 Advance Directive YOLANDE 01/21/24 Transmitted 17:13 Basic Metabolic Panel LAB 01/22/24 Verified 04:00 Complete Blood Count LAB 01/22/24 Verified 04:00 Patient Condition ORDERS 01/21/24 Transmitted 17:13 Allergies YOLANDE 01/21/24 Transmitted 17:13 Hydrocodone-Acet PHA 01/21/24 Transmitted 5/325mg Tab ([place] 17:15 Ondansetron Hcl PHA 01/21/24 Transmitted (Zofran) 17:15 Notify Md Of Changes [facility] 01/21/24 Transmitted From Base 17:13 Oxygen By Nasal RT 01/21/24 Transmitted Cannula 17:13 Problem List: (1) Failure to thrive in adult (2) Generalized weakness (3) Acute cystitis (4) UTI (urinary tract infection) (5) Dementia Date of Service: Jan 21, 2024 Billing Provider: WHITNEY MAY MD Common Visit Codes: [id number] INP/OBS CARE (HIGH) WHITNEY MAY MD Jan 21, 2024 17:48
[2024-01-21] MEDS: SODIUM CHLORIDE 0.9% 1,000 ML IV SCH (18:19)
[2024-01-21] MEDS: APIXABAN 5 MG TAB PO SCH (22:20)
[2024-01-21] MEDS: METOPROLOL TARTRATE 25 MG TAB PO SCH (22:21)
[2024-01-21 22:29] VITALS: PULSE 90; RESP 16; O2SAT 95
[2024-01-21 23:20] VITALS: BP 140/81; PULSE 82; RESP 22; TEMP 98.3; O2SAT 100
[2024-01-22] MEDS ORDERED: MEMA1TAB5 PO (00:17)
[2024-01-22] MEDS ORDERED: DONE1TAB88 PO (00:17)
[2024-01-22] MEDS ORDERED: CLOP75TA70 PO (00:17)
[2024-01-22] MEDS ORDERED: ASPI-325 PO (00:17)
[2024-01-22] MEDS ORDERED: FURO40TA4 PO (00:17)
[2024-01-22] MEDS ORDERED: METO25TA93 PO (00:17)
[2024-01-22] MEDS ORDERED: POTA-211 PO (00:17)
[2024-01-22] MEDS ORDERED: GUAI600T76 PO (00:17)
[2024-01-22] MEDS ORDERED: BENZ100C97 PO (00:17)
[2024-01-22] MEDS ORDERED: PRIM50TA5 PO (00:33)
[2024-01-22 05:00] VITALS: BP 138/73; PULSE 73; RESP 21; TEMP 98.4; O2SAT 99
[2024-01-22 07:14] LABS: Potassium 3.6 mmol/L (3.5-5.1)
[2024-01-22 07:15] LABS: Anion Gap 6 (5-15); Calcium 8.7 mg/dL (8.7-10.4); Carbon Dioxide 27 mmol/L (20-31)
[2024-01-22 07:20] LABS: BUN/Creatinine Ratio 11.7 (10.0-20.0); Blood Urea Nitrogen 12 mg/dL (9-23); Glucose 96 mg/dL (74-106)
[2024-01-22 07:21] LABS: Basophils # (auto) 0 10 ^3/uL (0-0.2); Basophils % (auto) 0.4 % (0.0-2.0); Eosinophils # (auto) 0.1 10 ^3/uL (0-0.8); Eosinophils % (auto) 1.3 % (0.0-7.0); Hematocrit 35.6 % (41.0-53.0); Hemoglobin 11.5 g/dL (13.5-17.5); Lymphocytes # (auto) 1.9 10 ^3/uL (0.4-5.4); Lymphocytes % (auto) 30.6 % (10.0-50.0); Mean Corpuscular Hemoglobin 25.8 pg (28.0-32.0); Mean Corpuscular Hgb Conc. 32.3 g/dL (32.0-36.0); Mean Corpuscular Volume 79.9 fL (80.0-100.0); Monocytes # (auto) 0.4 10 ^3/uL (0-1.3); Monocytes % (auto) 6.6 % (0.0-12.0); Neutrophils # (auto) 3.8 10 ^3/uL (1.6-8.6); Neutrophils % (auto) 61.1 % (37.0-80.0); Nucleated Red Blood Cells % 0.1 %; Platelet Count (auto) 141 10^3/uL (140-450); Red Blood Cells 4.45 10^6/uL (4.5-5.90); Red Cell Distribution Width 17.3 % (11.8-14.3); White Blood Cell 6.2 10^3/uL (4.4-10.8)
[2024-01-22 07:25] LABS: Chloride 114 mmol/L (98-107); Sodium 147 mmol/L (136-145)
[2024-01-22 09:00] VITALS: BP 124/61; PULSE 69; RESP 18; TEMP 99.8; O2SAT 96
[2024-01-22 09:40] LABS: Albumin 3.4 g/dL (3.2-4.8); Alkaline Phosphatase 89 U/L (46-116); Aspartate Aminotransferase 21 U/L (13-40); Bilirubin, Direct 0.2 mg/dL (<0.3); Bilirubin, Total 0.4 mg/dL (0.2-1.0); Total Protein 6.1 g/dL (5.7-8.2)
[2024-01-22 09:48] LABS: Alanine Aminotransferase < 9 U/L (7-40)
[2024-01-22 12:38] LABS: Albumin 3.5 g/dL (3.2-4.8); Alkaline Phosphatase 92 U/L (46-116); Anion Gap 11 (5-15); Aspartate Aminotransferase 18 U/L (13-40); Blood Urea Nitrogen 11 mg/dL (9-23); Calcium 8.8 mg/dL (8.7-10.4); Carbon Dioxide 27 mmol/L (20-31); Glucose 87 mg/dL (74-106); Potassium 3.8 mmol/L (3.5-5.1)
[2024-01-22 12:39] LABS: Alanine Aminotransferase < 9 U/L (7-40); Bilirubin, Total 0.4 mg/dL (0.2-1.0); Chloride 112 mmol/L (98-107); Sodium 150 mmol/L (136-145); Total Protein 6.3 g/dL (5.7-8.2)
[2024-01-22] MEDS ORDERED: guaiFENesin 200 MG/10 ML UD PO PRN (12:45)
[2024-01-22] MEDS ORDERED: D5W/SOD CHL 0.45% 1,000 ML IV ONE (12:45)
[2024-01-22 13:00] VITALS: BP 136/49; PULSE 116; RESP 18; TEMP 98.1; O2SAT 95
[2024-01-22] MEDS: cefTRIAXone 1GM/50ML D5W 50 ML IV SCH (13:38)
[2024-01-22] MEDS: D5W 5% 1,000 ML IV ONE (16:45)
[2024-01-22 17:00] VITALS: BP 110/82; PULSE 118; RESP 18; TEMP 98.1; O2SAT 96
[2024-01-22] MEDS: METOPROLOL SUCCINATE XL 50 MG TAB PO ONE (17:21)
--- NOTE | 2024-01-22 17:23 | DVHSR ---
APPROVED REPORT EXAM: LIMITED Two-dimensional echocardiogram. Blood Pressure: 138/73 mmHg INDICATION Bibasilar Crackles RISK FACTORS Obesity: Height: 5' 7", Weight: 215 Mitral Valve MitralMitral Stenosis E/A ratio0.02D MVAcm2 Other Information Quality : Technically LimitedRhythm : Technically limited study due to body habitus, patient position, patient moving, patient rhythm and breathing. Conclusion Very limited study due to poor acoustic window. Grossly normal left ventricular systolic function estimated ejection fraction 55%. Grossly normal ri ght ventricular size and dimension. No significant valve pathology was detected in the limited study obtained. No significant pericardial effusion was seen. New
[2024-01-22] MEDS: ASPirin 81 mg TAB PO ONE (17:34)
[2024-01-22 17:39] LABS: Rapid Influenza B Negative (Negative)
[2024-01-22 17:40] LABS: Rapid Influenza A Positive (Negative)
[2024-01-22 17:41] LABS: COVID19 ANTIGEN SOFIA FIA NEGATIVE (NEGATIVE)
[2024-01-22] MEDS ORDERED: LABETALOL HCL 20 MG/4 ML VL IV PRN (19:45)
--- NOTE | 2024-01-22 20:37 | DVHPNRES ---
Progress Note Date Seen: Jan 22, 2024 Resident Creating Document: JHTrishJSADAF Daniels RESIDENT Medical Necessity Reason Pt with a Central, PICC or Fol: No Subjective Review of Systems Patient is 83 year old male with past medical history as described below was brought to the ED with the chief complaint of Fever recorded at home. As reported by the patient's daughter, everyone in the family had flu with cough. cold and congestion and a few days later the patient also had some symptoms and had a fever recorded at 103F following which the patient was brought to the ER. Patient has a suprapubic catheter which is changed every month by a urologist with h/o uretheral stricture. Past medical history: Alzheimer's disease, dementia Past surgical history : none reported Social history: Daughter is the [employer] supervisor, does not smoke, drink or consume illicit drugs Home medications: Primidone 50mg tid, aspirin 81mg daily, lasix 40mg daily, donepezil 10mg hs, memantine 10mg daily,metoprolol succinate 25mg daily Review of systems Patient is seen and examined at the bedside A/O X 1. Daughter reports that he is at baseline GCS 13 [id number] Patient follows verbal commands but does not reply to questions about feeling any acute pain, nausea, vomiting, cough, congestion, chest pain, shortness of breath Objective vital signs Vital Sign Date Time Temp Pulse Resp B/P (MAP) Pulse Ox O2 Delivery O2 Flow Rate FiO2 01/22/24 17:21 108 181/78 01/22/24 17:00 98.1 18 96 98.1 01/21/24 23:20 Nasal Cannula* 3 32 Total Intake and Output 01/21/24 01/21/24 01/22/24 15:00 23:00 07:00 Intake Total 550 ml 200 ml Output Total 100 ml 300 ml Balance 450 ml -100 ml medications Current Medications Medications Dose Ordered Sig/Jennifer Route Start Time Stop Time Status Last Admin Dose Admin Ceftriaxone Sodium 50 ml @ 100 mls/hr DAILY IV 01/22/24 10:00 01/22/24 13:38 100 MLS/HR Al Hydrox/Mg Hydrox/Simethicone 30 ml Q6HP PRN PO 01/21/24 17:15 Docusate Sodium 100 mg BIDPRN PRN PO 01/21/24 17:15 Acetaminophen 650 mg Q6HP PRN PO 01/21/24 17:15 Acetaminophen/ Hydrocodone Bitart 1 tab Q4HP PRN PO 01/21/24 17:15 Ondansetron HCl 4 mg Q4HP PRN IV 01/21/24 17:15 Metoprolol Succinate 25 mg DAILY PO 01/23/24 10:00 Aspirin 81 mg DAILY PO 01/23/24 10:00 Guaifenesin 200 mg Q6HP PRN PO 01/22/24 12:45 Donepezil HCl 10 mg HS PO 01/22/24 22:00 Memantine 10 mg DAILY PO 01/23/24 10:00 Oseltamivir Phosphate 75 mg Q12HR PO 01/22/24 22:00 01/27/24 21:59 Azithromycin 250 ml @ 125 mls/hr DAILY@1999 IV 01/23/24 20:00 Labetalol HCl 5 mg Q6HPRN PRN IV 01/22/24 19:45 Examination Physical Examination Gen - no pallor, no icterus, no cyanosis, no clubbing, no LAD, no edema. Skin - Patients skin is warm and dry. HEENT - normocephalic, atraumatic, dry mucous membranes. Neck - full ROM, no LAD, no JVD. Pulmonary - B/L decraesed breath sounds, no wheezing. cardiovascular - normal S1,S2 heard. no murmurs heard. GI - soft abdomen. no hepatospleenomegaly. Bowel sounds hypoactive Neurological - Patient is A/O X 1. Bilateral upper extremity strength 3/5, bilateral lower extremity strength 3/5, no facial droop, has intermittant tremor of B/L upper extremities at rest, Extremity: Left lower extremity is cool to touch and has diminished pulse laboratory and microbiology Laboratory Tests 01/22/24 11:56 01/22/24 06:45 Test 01/22/24 11:56 Range/Units Serum Glucose 87 74-106 mg/dL Microbiology Date/Time Source Procedure Growth Status 01/21/24 14:54 Blood Blood Culture - Preliminary NO GROWTH AFTER 24 HOURS OF INCUBATION. Resulted 01/21/24 14:45 Urine - [place] Urine Culture - Preliminary Resulted Problem List/Assessment/Plan Problem List/Assessment/Plan Assessment and Plan # Acute metabolic encephalopathy likely d/t UTI, Viral pneumonia # UTI - UA shows elevated urine WBC, 2+ nitrite, 3+ LE - Urine culture pending - patient has suprapubic catheter - on ceftriaxone 1g IV daily # Community Acquired pneumonia likely ?Gram+/- ?Viral ?Atypical Pneumonia - influenza type a positive - started on IV ceftriaxone and IV azithromycin - on oseltamivir 75mg PO q12hr - Guaifesin prn - IV fluids # Hypernatremia - free water deficiet 4L - Given D5W # Alzheimer's disease # Dementia - continued on home medication # Hypertensive heart disease - on metoprolol succinate 25mg daily - aspirin 81mg dialy # Speech therapy evaluation - on Pureed diet Goals of care discussed with the patient's daughter Graciela for over 29 mins. Full code Plan discussed with Plan discussed with: Daughter (Graciela) My Orders My Orders Orders - SADAF MENDEZ RESIDENT Procedure Category Date Status Time * Swallow Request ST 01/22/24 Transmitted 10:37 Echo 2d Mode Cardiac US 01/22/24 Resulted DOP 12:23 Npo Except For YOLANDE 01/22/24 In Process Medications 12:24 Metoprolol Xl PHA 01/23/24 In Process Succinate (Toprol Xl) 10:00 Aspirin Tablet PHA 01/23/24 In Process 10:00 Guaifenesin Plain PHA 01/22/24 In Process Liquid (Robitussin Luis M 12:45 Donepezil Tablet PHA 01/22/24 In Process (Aricept Tablet) 22:00 Memantine Tablet PHA 01/23/24 In Process (Namenda Tablet) 10:00 Cleanse Wound With YOLANDE 01/22/24 In Process Wound Clean 13:25 * Dietary Consult CONS 01/22/24 Transmitted 13:30 D5w 5% (Dextrose 5%) PHA 01/22/24 In Process 14:00 Pureed DIET 01/22/24 Transmitted Dinner Oseltamivir 75mg PHA 01/22/24 In Process Capsule (Tamiflu 75mg 22:00 Azithromycin 500mg/ PHA 01/22/24 In Process 250ml (Zithromax 50 19:45 Azithromycin 500mg/ PHA 01/23/24 In Process 250ml (Zithromax 50 20:00 Labetalol Hcl PHA 01/22/24 In Process (Labetalol Hcl) 19:45 Date of Service: Jan 22, 2024 Billing Provider: NAYANA MARIA MD Common Visit Codes: [id number] INP/OBS CARE(HIGH) SADAF MENDEZ RESIDENT Jan 22, 2024 20:37 NAYANA MARIA MD Jan 26, 2024 09:23
[2024-01-22 21:00] VITALS: BP 114/39; PULSE 79; RESP 19; TEMP 100.2; O2SAT 100
[2024-01-22] MEDS: AZITHROMYCIN 500MG/ 250ML 250 ML IV ONE (21:31)
[2024-01-22] MEDS: DONEPEZIL HYDROCHLORIDE 5 MG TAB PO SCH (21:38)
[2024-01-22] MEDS: OSELTAMIVIR 75 MG CAP PO SCH (21:39)
[2024-01-23] VITALS (7 sets, daily range): BP systolic 106–178; BP diastolic 65–82; PULSE 62–103; RESP 15–19; TEMP 96.3–100.7; O2SAT 92–98
[2024-01-23] MEDS: PRIMIDONE 50 MG TAB PO SCH (05:33)
[2024-01-23 06:46] LABS: Basophils # (auto) 0 10 ^3/uL (0-0.2); Basophils % (auto) 0.4 % (0.0-2.0); Eosinophils # (auto) 0.1 10 ^3/uL (0-0.8); Monocytes # (auto) 0.4 10 ^3/uL (0-1.3); Nucleated Red Blood Cells % 0.2 %; White Blood Cell 6.5 10^3/uL (4.4-10.8)
[2024-01-23 06:49] LABS: Eosinophils % (auto) 1.1 % (0.0-7.0); Hematocrit 36.6 % (41.0-53.0); Hemoglobin 11.7 g/dL (13.5-17.5); Lymphocytes # (auto) 2.3 10 ^3/uL (0.4-5.4); Lymphocytes % (auto) 34.7 % (10.0-50.0); Mean Corpuscular Hemoglobin 25.6 pg (28.0-32.0); Mean Corpuscular Volume 80.2 fL (80.0-100.0); Neutrophils # (auto) 3.8 10 ^3/uL (1.6-8.6); Neutrophils % (auto) 57.8 % (37.0-80.0); Platelet Count (auto) 134 10^3/uL (140-450); Red Blood Cells 4.57 10^6/uL (4.5-5.90); Red Cell Distribution Width 17.4 % (11.8-14.3)
[2024-01-23 06:56] LABS: Anion Gap 7 (5-15); Carbon Dioxide 30 mmol/L (20-31); Potassium 3.6 mmol/L (3.5-5.1)
[2024-01-23 06:58] LABS: Calcium 9.1 mg/dL (8.7-10.4)
[2024-01-23 07:01] LABS: Chloride 111 mmol/L (98-107); Sodium 148 mmol/L (136-145)
[2024-01-23 07:03] LABS: Blood Urea Nitrogen 14 mg/dL (9-23)
[2024-01-23 07:08] LABS: Glucose 112 mg/dL (74-106)
[2024-01-23] MEDS: D5W 5% 1,000 ML IV SCH (08:08)
[2024-01-23] MEDS: METOPROLOL SUCCINATE XL 50 MG TAB PO SCH (10:00)
[2024-01-23] MEDS ORDERED: SOD CHL 0.45% 1,000 ML IV SCH (10:15)
[2024-01-23] MEDS: KETOROLAC TROMETH 30 MG/ML 1ML VIAL IV ONE ×2 (10:30→11:51)
--- NOTE | 2024-01-23 10:36 | DVHPN2 ---
Progress Note - Dictate Date Seen: Jan 23, 2024 Medical Necessity Reason Pt with a Central, PICC or Fol: No Subjective Patient non-verbal. Is arousable. No signs of distress. vital signs Vital Sign Date Time Temp Pulse Resp B/P (MAP) Pulse Ox O2 Delivery O2 Flow Rate FiO2 01/23/24 09:18 98.1 75 16 108/68 (81) 98 98.1 01/22/24 21:37 Nasal Cannula* 3 32 Total Intake and Output 01/22/24 01/22/24 01/23/24 15:00 23:00 07:00 Intake Total 50 ml 0 ml Output Total 900 ml 300 ml Balance -850 ml -300 ml medications Current Medications Medications Dose Ordered Sig/Jennifer Route Start Time Stop Time Status Last Admin Dose Admin Ceftriaxone Sodium 50 ml @ 100 mls/hr DAILY IV 01/22/24 10:00 01/22/24 13:38 100 MLS/HR Al Hydrox/Mg Hydrox/Simethicone 30 ml Q6HP PRN PO 01/21/24 17:15 Docusate Sodium 100 mg BIDPRN PRN PO 01/21/24 17:15 Acetaminophen 650 mg Q6HP PRN PO 01/21/24 17:15 Acetaminophen/ Hydrocodone Bitart 1 tab Q4HP PRN PO 01/21/24 17:15 Ondansetron HCl 4 mg Q4HP PRN IV 01/21/24 17:15 Metoprolol Succinate 25 mg DAILY PO 01/23/24 10:00 Aspirin 81 mg DAILY PO 01/23/24 10:00 Guaifenesin 200 mg Q6HP PRN PO 01/22/24 12:45 Donepezil HCl 10 mg HS PO 01/22/24 22:00 01/22/24 21:38 10 MG Memantine 10 mg DAILY PO 01/23/24 10:00 Oseltamivir Phosphate 75 mg Q12HR PO 01/22/24 22:00 01/27/24 21:59 01/22/24 21:39 75 MG Azithromycin 250 ml @ 125 mls/hr DAILY@2000 IV 01/23/24 20:00 Labetalol HCl 5 mg Q6HPRN PRN IV 01/22/24 19:45 Primidone 50 mg TID PO 01/23/24 06:00 01/23/24 05:33 50 MG Dextrose 1,000 ml @ 125 mls/hr Q8H IV 01/23/24 07:15 01/24/24 07:15 01/23/24 08:08 125 MLS/HR objective General: Elderly, comfortable Respiratory: Fine bibasilar crackles Cards: RRR, no edema Neuro: Alert to self laboratory and microbiology Laboratory Tests 01/23/24 06:20 Test 01/23/24 06:20 Range/Units Serum Glucose 112 H 74-106 mg/dL Assessment/Plan 1. Pneumonia 2/2 Influenza 2. Acute Respiratory Respiratory Failure due to Pneumonia 3. Hypernatremia 4. Alzheimer's Dementia 5. 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 Continue azithromycin. -Tylenol PRN for fever. One time dose of toradol given persistent recurrent fevers -Continue NC 3L with goal pulse ox>92%. -Ceftriaxone for UTI, pending cultures, however likely due to colonization -Memantine continued for dementia -D5W for hypernatremia -Diet per speech recommendation -US renal ordered -Discussed plan of care with daughter, Graciela, wants patient to return home on discharge -Full Code Plan discussed with: Patient, Daughter EVIEDURAN POLANCO Suellen MOON Jan 23, 2024 10:36
[2024-01-23] MEDS: ASPirin 81 mg TAB PO SCH (11:35)
[2024-01-23] MEDS: MEMANTINE HCL 5 MG TAB PO SCH (11:35)
--- NOTE | 2024-01-23 11:56 | DVH ---
RENAL ULTRASOUND CLINICAL HISTORY: UTI, with history of suprapubic catheter. R/o hydro, pyelone TECHNIQUE: Multiple ultrasound images of the kidneys and bladder were obtained. COMPARISON: None FINDINGS: The right kidney measures 14 cm in length. The left kidney measures 13 cm. There are bilateral renal cysts. There is a 4.0 x 3.8 cm right midpole cyst with partially calcified simms. There is a simila r appearing left lower pole renal cyst measuring 3.5 x 3.3 cm. There is no evidence of nephrolithiasi s or hydronephrosis. There is a Bradshaw catheter in the bladder which is collapsed. IMPRESSION: 1. There is no sonographic evidence of nephrolithiasis or hydronephrosis. 2. Multiple bilateral renal cysts including right and left mildly complicated cysts with partially ca lcified simms measuring 4 cm on the right and 3.5 cm on the left. HS:Y
[2024-01-23 16:44] LABS: Base Excess 0.5 mmol/L (-2.0-3.0)
[2024-01-23] MEDS: AZITHROMYCIN 500MG/ 250ML 250 ML IV SCH (20:39)
[2024-01-24] VITALS (13 sets, daily range): BP systolic 94–125; BP diastolic 57–72; PULSE 62–88; RESP 12–20; TEMP 97.3–98.4; O2SAT 92–100
--- NOTE | 2024-01-24 12:05 | DVHPN2 ---
Progress Note - Dictate Date Seen: Jan 24, 2024 Medical Necessity Reason Pt with a Central, PICC or Fol: No Subjective Patient awake today. Denies any pain. vital signs Vital Sign Date Time Temp Pulse Resp B/P (MAP) Pulse Ox O2 Delivery O2 Flow Rate FiO2 01/24/24 10:00 71 94/57 01/24/24 09:16 97.3 19 92 97.3 01/24/24 07:45 Nasal Cannula* 3 32 Total Intake and Output 01/23/24 01/23/24 01/24/24 15:00 23:00 07:00 Intake Total 50 ml 1600 ml 900 ml Output Total 175 ml 1000 ml Balance 50 ml 1425 ml -100 ml medications Current Medications Medications Dose Ordered Sig/Jennifer Route Start Time Stop Time Status Last Admin Dose Admin Ceftriaxone Sodium 50 ml @ 100 mls/hr DAILY IV 01/22/24 10:00 01/24/24 11:28 100 MLS/HR Al Hydrox/Mg Hydrox/Simethicone 30 ml Q6HP PRN PO 01/21/24 17:15 Docusate Sodium 100 mg BIDPRN PRN PO 01/21/24 17:15 Acetaminophen 650 mg Q6HP PRN PO 01/21/24 17:15 Acetaminophen/ Hydrocodone Bitart 1 tab Q4HP PRN PO 01/21/24 17:15 Ondansetron HCl 4 mg Q4HP PRN IV 01/21/24 17:15 Metoprolol Succinate 25 mg DAILY PO 01/23/24 10:00 Aspirin 81 mg DAILY PO 01/23/24 10:00 01/24/24 11:29 81 MG Guaifenesin 200 mg Q6HP PRN PO 01/22/24 12:45 Donepezil HCl 10 mg HS PO 01/22/24 22:00 01/23/24 21:36 10 MG Memantine 10 mg DAILY PO 01/23/24 10:00 01/24/24 11:29 10 MG Oseltamivir Phosphate 75 mg Q12HR PO 01/22/24 22:00 01/27/24 21:59 01/24/24 11:29 75 MG Azithromycin 250 ml @ 125 mls/hr DAILY@2000 IV 01/23/24 20:00 01/23/24 20:39 125 MLS/HR Labetalol HCl 5 mg Q6HPRN PRN IV 01/22/24 19:45 Primidone 50 mg TID PO 01/23/24 06:00 01/24/24 05:53 50 MG Ipratropium [place] 0.5 mg Q4HWA [facility] 01/24/24 14:00 UNV Albuterol 2.5 mg Q4HWA [facility] 01/24/24 14:00 UNV objective General: Elderly, comfortable Respiratory:Coarse crackles Cards: RRR, no edema Neuro: Alert to self laboratory and microbiology Laboratory Tests 01/23/24 06:20 Test 01/23/24 06:20 Range/Units Serum Glucose 112 H 74-106 mg/dL Assessment/Plan 1. Pneumonia 2/2 Influenza 2. Acute Respiratory Respiratory Failure due to Pneumonia 3. Hypernatremia 4. Alzheimer's Dementia 5. 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 Continue azithromycin. -Tylenol PRN for fever. No fever for past 24 hours -Continue NC 3L with goal pulse ox>92%. Duonebs added. -Ceftriaxone for UTI, pending cultures, however likely due to colonization -Memantine continued for dementia -D5W for hypernatremia, discontinued due to concerns of fluid overload with respiratory failure. Continue to monitor BMP. -Diet per speech recommendation -US renal notable for cysts -Discussed plan of care with daughter, Graciela, wants patient to return home on discharge -Full Code Dietary Evaluation Review Comments: May consider Lon BID for wound healing, encourage fluids, monitor PO intake to meet 75% of his needs Expected Outcomes/Goals: healed wounds and gradual weight loss. Plan discussed with: Patient EIVECOLLINDURAN Ken DO Jan 24, 2024 12:05
[2024-01-24 12:13] LABS: Basophils # (auto) 0 10 ^3/uL (0-0.2); Basophils % (auto) 0.4 % (0.0-2.0); Eosinophils # (auto) 0.4 10 ^3/uL (0-0.8); Eosinophils % (auto) 6.8 % (0.0-7.0); Monocytes # (auto) 0.3 10 ^3/uL (0-1.3); Neutrophils # (auto) 2.1 10 ^3/uL (1.6-8.6); White Blood Cell 5.2 10^3/uL (4.4-10.8)
[2024-01-24 12:14] LABS: Hematocrit 35.1 % (41.0-53.0); Hemoglobin 11.4 g/dL (13.5-17.5); Lymphocytes # (auto) 2.4 10 ^3/uL (0.4-5.4); Lymphocytes % (auto) 46.9 % (10.0-50.0); Mean Corpuscular Hemoglobin 25.8 pg (28.0-32.0); Mean Corpuscular Hgb Conc. 32.4 g/dL (32.0-36.0); Mean Corpuscular Volume 79.4 fL (80.0-100.0); Monocytes % (auto) 5.7 % (0.0-12.0); Neutrophils % (auto) 40.2 % (37.0-80.0); Nucleated Red Blood Cells % 0.2 %; Platelet Count (auto) 122 10^3/uL (140-450); Red Blood Cells 4.41 10^6/uL (4.5-5.90); Red Cell Distribution Width 17.5 % (11.8-14.3)
[2024-01-24 12:27] LABS: Alanine Aminotransferase 13 U/L (7-40); Alkaline Phosphatase 81 U/L (46-116); Anion Gap 5 (5-15); Aspartate Aminotransferase 31 U/L (13-40); BUN/Creatinine Ratio 13.6 (10.0-20.0); Blood Urea Nitrogen 14 mg/dL (9-23); Carbon Dioxide 28 mmol/L (20-31); Chloride 107 mmol/L (98-107); Glucose 103 mg/dL (74-106); Potassium 3.6 mmol/L (3.5-5.1); Sodium 140 mmol/L (136-145)
[2024-01-24 12:28] LABS: Total Protein 5.8 g/dL (5.7-8.2)
[2024-01-24 12:29] LABS: Albumin 3.2 g/dL (3.2-4.8); Bilirubin, Total 0.3 mg/dL (0.2-1.0); Calcium 8.3 mg/dL (8.7-10.4)
[2024-01-24] MEDS: IPRATROPIUM BROM 0.5 MG/2.5ML INH SOL NEB SCH (15:07)
[2024-01-24] MEDS: ALBUTEROL SULF 2.5 MG/0.5ML(0.5%) NEB SOLN NEB SCH (15:07)
[2024-01-25] VITALS (16 sets, daily range): BP systolic 91–117; BP diastolic 52–75; PULSE 51–97; RESP 16–20; TEMP 97.3–99.4; O2SAT 90–100
[2024-01-25] MEDS: CLOPIDOGREL BISULFATE 75 MG TAB PO SCH (10:40)
[2024-01-25 11:57] LABS: Basophils # (auto) 0 10 ^3/uL (0-0.2); Basophils % (auto) 0.3 % (0.0-2.0); Eosinophils # (auto) 0.1 10 ^3/uL (0-0.8); Lymphocytes # (auto) 2.4 10 ^3/uL (0.4-5.4); Monocytes # (auto) 0.2 10 ^3/uL (0-1.3); Monocytes % (auto) 5.1 % (0.0-12.0); Nucleated Red Blood Cells % 0.2 %; White Blood Cell 4.7 10^3/uL (4.4-10.8)
[2024-01-25 11:59] LABS: Eosinophils % (auto) 1.8 % (0.0-7.0); Hemoglobin 11.1 g/dL (13.5-17.5); Lymphocytes % (auto) 50.6 % (10.0-50.0); Mean Corpuscular Hgb Conc. 31.7 g/dL (32.0-36.0); Mean Corpuscular Volume 78.9 fL (80.0-100.0); Neutrophils % (auto) 42.2 % (37.0-80.0); Platelet Count (auto) 115 10^3/uL (140-450); Red Blood Cells 4.44 10^6/uL (4.5-5.90); Red Cell Distribution Width 17.2 % (11.8-14.3)
[2024-01-25 12:13] LABS: Alanine Aminotransferase 19 U/L (7-40); Alkaline Phosphatase 82 U/L (46-116); Anion Gap 7 (5-15); Aspartate Aminotransferase 36 U/L (13-40); BUN/Creatinine Ratio 11.4 (10.0-20.0); Blood Urea Nitrogen 12 mg/dL (9-23); Carbon Dioxide 27 mmol/L (20-31); Chloride 106 mmol/L (98-107); Glucose 105 mg/dL (74-106); Sodium 140 mmol/L (136-145)
[2024-01-25 12:14] LABS: Albumin 3.1 g/dL (3.2-4.8); Bilirubin, Total 0.3 mg/dL (0.2-1.0); Calcium 8.4 mg/dL (8.7-10.4); Potassium 3.2 mmol/L (3.5-5.1); Total Protein 5.7 g/dL (5.7-8.2)
--- NOTE | 2024-01-25 12:26 | DVHPN2 ---
Progress Note - Dictate Date Seen: Jan 25, 2024 Medical Necessity Reason Pt with a Central, PICC or Fol: No The following are medically ne: Mckee Catheter Medical Necessity Reason Chronic Suprapubic Catheter Subjective Patient awake today. Denies any new complaints. vital signs Vital Sign Date Time Temp Pulse Resp B/P (MAP) Pulse Ox O2 Delivery O2 Flow Rate FiO2 01/25/24 10:41 74 16 98 01/25/24 10:35 Nasal Cannula 3.0 01/25/24 10:35 32 01/25/24 10:00 117/55 01/25/24 05:00 98.8 98.8 Total Intake and Output 01/24/24 01/24/24 01/25/24 15:00 23:00 07:00 Intake Total 100 ml 450 ml 300 ml Output Total 250 ml 350 ml Balance 100 ml 200 ml -50 ml medications Current Medications Medications Dose Ordered Sig/Jennifer Route Start Time Stop Time Status Last Admin Dose Admin Ceftriaxone Sodium 50 ml @ 100 mls/hr DAILY IV 01/22/24 10:00 01/25/24 10:40 100 MLS/HR Al Hydrox/Mg Hydrox/Simethicone 30 ml Q6HP PRN PO 01/21/24 17:15 Docusate Sodium 100 mg BIDPRN PRN PO 01/21/24 17:15 Acetaminophen 650 mg Q6HP PRN PO 01/21/24 17:15 Acetaminophen/ Hydrocodone Bitart 1 tab Q4HP PRN PO 01/21/24 17:15 Ondansetron HCl 4 mg Q4HP PRN IV 01/21/24 17:15 Metoprolol Succinate 25 mg DAILY PO 01/23/24 10:00 Aspirin 81 mg DAILY PO 01/23/24 10:00 01/25/24 10:40 81 MG Guaifenesin 200 mg Q6HP PRN PO 01/22/24 12:45 Donepezil HCl 10 mg HS PO 01/22/24 22:00 01/24/24 20:49 10 MG Memantine 10 mg DAILY PO 01/23/24 10:00 01/25/24 10:40 10 MG Oseltamivir Phosphate 75 mg Q12HR PO 01/22/24 22:00 01/27/24 21:59 01/25/24 10:41 75 MG Azithromycin 250 ml @ 125 mls/hr DAILY@1999 IV 01/23/24 20:00 01/24/24 20:48 125 MLS/HR Labetalol HCl 5 mg Q6HPRN PRN IV 01/22/24 19:45 Primidone 50 mg TID PO 01/23/24 06:00 01/25/24 05:19 50 MG Ipratropium [place] 0.5 mg Q4HWA [facility] 01/24/24 14:00 01/25/24 10:35 0.5 MG Albuterol 2.5 mg Q4HWA [facility] 01/24/24 14:00 01/25/24 10:35 2.5 MG Clopidogrel Bisulfate 75 mg DAILY PO 01/25/24 10:00 01/25/24 10:40 75 MG objective General: Elderly, comfortable Respiratory:Coarse crackles Cards: RRR, no edema Neuro: Alert to self laboratory and microbiology Laboratory Tests 01/25/24 11:42 Test 01/25/24 11:42 Range/Units Serum Glucose 105 74-106 mg/dL Assessment/Plan 1. Pneumonia 2/2 Influenza 2. Acute Respiratory Respiratory Failure due to Pneumonia 3. Hypernatremia 4. Alzheimer's Dementia 5. 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 Continue azithromycin. -Tylenol PRN for fever. No fever for past 48 hours -Continue NC 3L with goal pulse ox>92%. Duonebs added. -Memantine continued for dementia -D5W for hypernatremia, discontinued due to concerns of fluid overload with respiratory failure. Continue to monitor BMP. -Diet per speech recommendation -US renal notable for cysts -UCx show C. Freundii and E. Faecalis. Infectious disease consulted. -Plan for CXR today due to notable crackes -Home medications reconciled and continued -Discussed plan of care with daughter, Graciela, wants patient to return home on discharge -Full Code Dietary Evaluation Review Comments: May consider Lon BID for wound healing, encourage fluids, monitor PO intake to meet 75% of his needs Expected Outcomes/Goals: healed wounds and gradual weight loss. Plan discussed with: Patient EVIECOLLINDURAN Ken DO Jan 25, 2024 12:26
--- NOTE | 2024-01-25 12:55 | DVH ---
CHEST RADIOGRAPH Indication: Coarse crackles, concern for fluid overload in setting ofPNA Technique: Single frontal view of the chest was obtained COMPARISON: XY CHEST PORTABLE on DOS: 01/21/24, CHEST PORTABLE on DOS: 11/09/21, CXRP on DOS: 11/09/21 FINDINGS: Lines and Tubes: None Lungs: Mild congestion Pleura: No effusion. No pneumothorax. Cardiomediastinal contours: Unremarkable Bones: Unremarkable IMPRESSION: Mild congestion, increased.
[2024-01-25] MEDS: POTASSIUM EFFERVESENT TAB 25 MEQ PO ONE (13:45)
[2024-01-25] MEDS: FUROSEMIDE 20 MG/2 ML VIAL IV ONE (16:22)
[2024-01-26] VITALS (13 sets, daily range): BP systolic 114–142; BP diastolic 55–81; PULSE 60–92; RESP 16–20; TEMP 97.5–98.4; O2SAT 92–100
[2024-01-26 06:05] LABS: Basophils # (auto) 0 10 ^3/uL (0-0.2); Basophils % (auto) 0.2 % (0.0-2.0); Eosinophils # (auto) 0.2 10 ^3/uL (0-0.8); Hemoglobin 10.7 g/dL (13.5-17.5); Lymphocytes # (auto) 2.3 10 ^3/uL (0.4-5.4); Monocytes # (auto) 0.3 10 ^3/uL (0-1.3)
[2024-01-26 06:09] LABS: Eosinophils % (auto) 3.4 % (0.0-7.0); Hematocrit 32.3 % (41.0-53.0); Lymphocytes % (auto) 47.8 % (10.0-50.0); Mean Corpuscular Hemoglobin 25.7 pg (28.0-32.0); Monocytes % (auto) 5.4 % (0.0-12.0); Neutrophils % (auto) 43.2 % (37.0-80.0); Nucleated Red Blood Cells % 0.5 %; Platelet Count (auto) 103 10^3/uL (140-450); Red Blood Cells 4.15 10^6/uL (4.5-5.90); White Blood Cell 4.7 10^3/uL (4.4-10.8)
[2024-01-26 06:18] LABS: Alanine Aminotransferase 20 U/L (7-40); Alkaline Phosphatase 79 U/L (46-116); Anion Gap 6 (5-15); Aspartate Aminotransferase 39 U/L (13-40); BUN/Creatinine Ratio 11.3 (10.0-20.0); Bilirubin, Total 0.3 mg/dL (0.2-1.0); Blood Urea Nitrogen 12 mg/dL (9-23); Carbon Dioxide 30 mmol/L (20-31); Chloride 104 mmol/L (98-107); Glucose 95 mg/dL (74-106); Sodium 140 mmol/L (136-145)
[2024-01-26 06:22] LABS: Albumin 3.1 g/dL (3.2-4.8); Calcium 8.6 mg/dL (8.7-10.4); Potassium 3.3 mmol/L (3.5-5.1); Total Protein 5.6 g/dL (5.7-8.2)
[2024-01-26] MEDS: POTASSIUM EFFERVESENT TAB 25 MEQ PO ONE (12:40)
--- NOTE | 2024-01-26 13:10 | DVHDS2 ---
Discharge Summary Date of Admission Jan 21, 2024 at 17:13 Date of Discharge: Jan 26, 2024 Labs/Diagnostic Data: Laboratory Results Test 01/26/24 05:32 01/23/24 15:45 01/22/24 16:01 01/22/24 14:00 White Blood Count 4.7 10^3/uL (4.4-10.8) Red Blood Count 4.15 10^6/uL (4.5-5.90) Hemoglobin 10.7 g/dL (13.5-17.5) Hematocrit 32.3 % (41.0-53.0) Mean Corpuscular Volume 78.0 fL (80.0-100.0) Mean Corpuscular Hemoglobin 25.7 pg (28.0-32.0) Mean Corpuscular Hemoglobin Concent 33.0 g/dL (32.0-36.0) Red Cell Distribution Width 17.0 % (11.8-14.3) Platelet Count 103 10^3/uL (140-450) Mean Platelet Volume 9.1 fL (6.9-10.8) Neutrophils (%) (Auto) 43.2 % (37.0-80.0) Lymphocytes (%) (Auto) 47.8 % (10.0-50.0) Monocytes (%) (Auto) 5.4 % (0.0-12.0) Eosinophils (%) (Auto) 3.4 % (0.0-7.0) Basophils (%) (Auto) 0.2 % (0.0-2.0) Neutrophils # (Auto) 2.0 10 ^3/uL (1.6-8.6) Lymphocytes # (Auto) 2.3 10 ^3/uL (0.4-5.4) Monocytes # (Auto) 0.3 10 ^3/uL (0-1.3) Eosinophils # (Auto) 0.2 10 ^3/uL (0-0.8) Basophils # (Auto) 0 10 ^3/uL (0-0.2) Nucleated Red Blood Cells 0.5 % Sodium Level 140 mmol/L (136-145) Potassium Level 3.3 mmol/L (3.5-5.1) Chloride Level 104 mmol/L (98-107) Carbon Dioxide Level 30 mmol/L (20-31) Anion Gap 6 (5-15) Blood Urea Nitrogen 12 mg/dL (9-23) Creatinine 1.06 mg/dL (0.700-1.30) Glomerular Filtration Rate Calc 69 mL/min (>90) BUN/Creatinine Ratio 11.3 (10.0-20.0) Serum Glucose 95 mg/dL (74-106) Calcium Level 8.6 mg/dL (8.7-10.4) Total Bilirubin 0.3 mg/dL (0.2-1.0) Aspartate Amino Transferase (AST) 39 U/L (13-40) Alanine Aminotransferase (ALT) 20 U/L (7-40) Alkaline Phosphatase 79 U/L (46-116) Total Protein 5.6 g/dL (5.7-8.2) Albumin 3.1 g/dL (3.2-4.8) Blood Gas Specimen Type Arterial Blood Gas Sample Site Right radial Blood Gas Patient Temperature 37.0 Arterial Blood Date Drawn [id number] Arterial Blood pH 7.437 (7.350-7.450) Arterial Blood Partial Pressure CO2 37.2 mmHg (35.0-48.0) Arterial Blood Partial Pressure O2 58.1 mmHg (83.0-108.0) Arterial Blood HCO3 24.5 mmol/L (21.0-28.0) Arterial Blood Oxygen Saturation 90.1 % (94.0-98.0) Arterial Blood Base Excess 0.5 mmol/L (-2.0-3.0) Arterial Blood Oxyhemoglobin 89.4 % (94.0-98.0) Arterial Blood Carboxyhemoglobin 0.4 % (0.5-1.5) Arterial Blood Methemoglobin 0.4 % (0.0-1.5) Marvin Test Yes Blood Gas Total Hemoglobin 11.70 g/dL (13.5-17.5) Blood Gas Modality Room air FiO2 % 21.0 Blood Gas Critical Value Read Back Yes SARS-CoV-2 Antigen (Rapid) Negative (NEGATIVE) Influenza Type A Antigen Positive (Negative) Influenza Type B Antigen Negative (Negative) Test 01/22/24 11:56 01/22/24 06:45 01/21/24 14:45 Lactic Acid Level 1.6 mmol/L (0.4-2.0) Direct Bilirubin 0.2 mg/dL (<0.3) Thyroid Stimulating Hormone (TSH) 0.85 uIU/mL (0.55-4.78) Urine Color Dark-brown (Yellow) Urine Clarity Ex.turbid (Clear) Urine pH 6.5 (5.0-9.0) Urine Specific [place] 1.014 (1.001-1.035) Urine Protein 3+ (Negative) Urine Ketones Negative (Negative) Urine Blood 1+ /uL (Negative) Urine Nitrite 2+ (Negative) Urine Bilirubin Negative (Negative) Urine Urobilinogen Normal mg/dL (Negative) Urine Leukocyte Esterase 3+ /uL (Negative) Urine RBC 34 /hpf (0 - 3) Urine WBC 3916 /hpf (0 - 3) Urine WBC Clumps Present /hpf (None Seen) Urine Squamous Epithelial Cells Mod /hpf (<5) Urine Bacteria Many /hpf (None Seen) Urine Mucus Few (None Seen) Urine Glucose Normal mg/dL (Normal) Other Laboratory Tests 01/26/24 05:32 Brief Hx & Hospital Course: Patient is an 83-year-old male with past medical history of Alzheimer's dementia, COPD, pulmonary fibrosis, history of HI, presence of suprapubic catheter who presented with altered mental status and fevers. Patient ultimately was noted to be influenza A positive. Patient was subsequently started on Tamiflu which resolved his fevers. Patient had a UA done which grew mixed bela of Citrobacter freundii, Enterococcus faecalis, and Pseudomonas aeruginosa. Patient is noted to have a chronic suprapubic catheter. Ultrasound of the kidneys did not reveal any evidence of nephrolithiasis or other nephrosis. He was notable for multiple bilateral renal cysts including right and left mildly complicated cyst with partially calcified simms measuring 4 cm in the right and 3.5 cm on the left. Infectious disease was consulted. No additional antibiotics recommended for the urine culture findings. Patient was monitored for several days in the hospital his oxygen requirement was noted to be stable 3 L. He had initially presented with an TAI which returned to baseline with IV fluids. Patient had required some Lasix during his hospitalization due to some pulmonary vascular congestion. TTE did not reveal any heart failure. Patient was evaluated by physical therapy who recommended discharge to SNF for further physical therapy. I discussed this plan of care with the daughter, Graciela who was in agreement. Patient discharged in stable condition. [facility] case management to help arrange follow up appointments. Condition at Discharge: Fair Final Diagnosis/Problems List Acute Respiratory Failure due to Influenza A Secondary Diagnosis: TAI, due to VMN Alzheimer's Dementia Thrombocytopenia Generalized Weakness Discharge Disposition: [facility] Facility Discharge Statement: "Patient was advised to return to the ER or call 911 if any headaches, dizziness, shortness of breath, chest pain, abdominal pain, bleeding, fevers, or worsening of medical condition. Patient was counseled about treatment plan, medications, possible side effects, patientverbalized understanding. All questions were answered to the best of my ability. This discharge took greater then 30 minutes in planning, reviewing documentation, counseling the patient, and discussing with other team members." ASSESSMENT ASSESSMENT Assessment DURAN TRAN DO Jan 26, 2024 13:10
[2024-01-26] MEDS: FUROSEMIDE 40 MG/4 ML VIAL IV ONE (15:39)
--- NOTE | 2024-01-29 14:30 | DVHINCON2 ---
Date of service: Jan 26, 2024 Family History: Patient reports no known family medical history. Allergies: Coded Allergies: NO KNOWN ALLERGIES (Unverified , 04/08/21) Home Meds Active Scripts Apixaban Base (ELIQUIS) 5 Mg Tab, 5 MG PO BID for 30 Days, #60 TAB 1 Refill Prov:NOLAN ZENDEJAS MD 11/09/21 Reported Medications Primidone (MYSOLINE TABLET) 50 Mg Tb, 1 TAB PO TID 01/22/24 Clopidogrel Bisulfate (CLOPIDOGREL) 75 Mg Tab, 1 TAB PO DAILY 01/22/24 Furosemide (Furosemide) 40 Mg Tab, 1 TAB PO DAILY 01/22/24 Donepezil Hydrochloride (DONEPEZIL HCL) 10 Mg Tab, 1 TAB PO QPM 01/22/24 Aspirin (Aspirin Low Dose) 81 Mg Tab, 1 TAB PO DAILY 01/22/24 Memantine Hydrochloride (Memantine HCl) 10 Mg Tab, 1 TAB PO DAILY 01/22/24 Benzonatate (Benzonatate) 100 Mg Cap, 1 CAP PO BIDPRN PRN for cough 01/22/24 Guaifenesin (Mucus Relief) 600 Mg Tab, 600 MG PO BID PRN for mucus or cough, TAB 01/22/24 Metoprolol Succinate (Metoprolol Succinate Er) 25 Mg Tab, 1 TAB PO DAILY 01/22/24 Potassium Chloride (Klor-Con 10) 10 Meq Tab, 1 TAB PO DAILY 01/22/24 Labs/Diagnostic Data Labs Test 01/26/24 05:32 01/23/24 15:45 01/22/24 16:01 01/22/24 14:00 Range/Units White Blood Count 4.7 4.4-10.8 10^3/uL Red Blood Count 4.15 L 4.5-5.90 10^6/uL Hemoglobin 10.7 L 13.5-17.5 g/dL Hematocrit 32.3 L 41.0-53.0 % Mean Corpuscular Volume 78.0 L 80.0-100.0 fL Mean Corpuscular Hemoglobin 25.7 L 28.0-32.0 pg Mean Corpuscular Hemoglobin Concent 33.0 32.0-36.0 g/dL Red Cell Distribution Width 17.0 H 11.8-14.3 % Platelet Count 103 L 140-450 10^3/uL Mean Platelet Volume 9.1 6.9-10.8 fL Neutrophils (%) (Auto) 43.2 37.0-80.0 % Lymphocytes (%) (Auto) 47.8 10.0-50.0 % Monocytes (%) (Auto) 5.4 0.0-12.0 % Eosinophils (%) (Auto) 3.4 0.0-7.0 % Basophils (%) (Auto) 0.2 0.0-2.0 % Neutrophils # (Auto) 2.0 1.6-8.6 10 ^3/uL Lymphocytes # (Auto) 2.3 0.4-5.4 10 ^3/uL Monocytes # (Auto) 0.3 0-1.3 10 ^3/uL Eosinophils # (Auto) 0.2 0-0.8 10 ^3/uL Basophils # (Auto) 0 0-0.2 10 ^3/uL Nucleated Red Blood Cells 0.5 % Sodium Level 140 136-145 mmol/L Potassium Level 3.3 L 3.5-5.1 mmol/L Chloride Level 104 98-107 mmol/L Carbon Dioxide Level 30 20-31 mmol/L Anion Gap 6 5-15 Blood Urea Nitrogen 12 9-23 mg/dL Creatinine 1.06 0.700-1.30 mg/dL Glomerular Filtration Rate Calc 69 >90 mL/min BUN/Creatinine Ratio 11.3 10.0-20.0 Serum Glucose 95 74-106 mg/dL Calcium Level 8.6 L 8.7-10.4 mg/dL Total Bilirubin 0.3 0.2-1.0 mg/dL Aspartate Amino Transferase (AST) 39 13-40 U/L Alanine Aminotransferase (ALT) 20 7-40 U/L Alkaline Phosphatase 79 46-116 U/L Total Protein 5.6 L 5.7-8.2 g/dL Albumin 3.1 L 3.2-4.8 g/dL Blood Gas Specimen Type Arterial Blood Gas Sample Site Right radial Blood Gas Patient Temperature 37.0 Arterial Blood Date Drawn [id number] Arterial Blood pH 7.437 7.350-7.450 Arterial Blood Partial Pressure CO2 37.2 35.0-48.0 mmHg Arterial Blood Partial Pressure O2 58.1 L 83.0-108.0 mmHg Arterial Blood HCO3 24.5 21.0-28.0 mmol/L Arterial Blood Oxygen Saturation 90.1 L 94.0-98.0 % Arterial Blood Base Excess 0.5 -2.0-3.0 mmol/L Arterial Blood Oxyhemoglobin 89.4 L 94.0-98.0 % Arterial Blood Carboxyhemoglobin 0.4 L 0.5-1.5 % Arterial Blood Methemoglobin 0.4 0.0-1.5 % Marvin Test Yes Blood Gas Total Hemoglobin 11.70 L 13.5-17.5 g/dL Blood Gas Modality Room air FiO2 % 21.0 Blood Gas Critical Value Read Back Yes SARS-CoV-2 Antigen (Rapid) Negative NEGATIVE Influenza Type A Antigen Positive Negative Influenza Type B Antigen Negative Negative Test 01/22/24 11:56 01/22/24 06:45 01/21/24 14:45 Range/Units Lactic Acid Level 1.6 0.4-2.0 mmol/L Direct Bilirubin 0.2 <0.3 mg/dL Thyroid Stimulating Hormone (TSH) 0.85 0.55-4.78 uIU/mL Urine Color Dark-brown Yellow Urine Clarity Ex.turbid Clear Urine pH 6.5 5.0-9.0 Urine Specific [place] 1.014 1.001-1.035 Urine Protein 3+ H Negative Urine Ketones Negative Negative Urine Blood 1+ H Negative /uL Urine Nitrite 2+ H Negative Urine Bilirubin Negative Negative Urine Urobilinogen Normal Negative mg/dL Urine Leukocyte Esterase 3+ Negative /uL Urine RBC 34 0 - 3 /hpf Urine WBC 3916 0 - 3 /hpf Urine WBC Clumps Present None Seen /hpf Urine Squamous Epithelial Cells Mod <5 /hpf Urine Bacteria Many H None Seen /hpf Urine Mucus Few None Seen Urine Glucose Normal Normal mg/dL Microbiology Date/Time Source Procedure Growth Status 01/21/24 14:54 Blood Blood Culture - Final NO GROWTH AFTER 5 DAYS OF INCUBATION. Complete 01/21/24 14:45 Urine - [place] Urine Culture - Final Citrobacter freundii Enterococcus faecalis Pseudomonas aeruginosa Complete Problems(with codes): (1) Influenza A (2) UTI (urinary tract infection) (3) Dementia (4) Failure to thrive in adult (5) Atypical chest pain (6) Urinary obstruction Plan/Recommendation ASSESSMENT AND PLAN: ID Problem List: - Influenza A pneumonia COPD - Recurrent urinary tract infections - Suprapubic catheter colonization - Mild dementia - Peripheral vascular disease - Coronary artery disease - Hypertension Assessment This is a male patient with a past medical history of peripheral vascular disease, atherosclerotic coronary artery disease, hypertension, recurrent urinary tract infections, mild dementia, and COPD, who presents with a change in mentation, high fevers, and not feeling himself for the last two days. Patient was found to have Influenza A pneumonia. Laboratory data significant for elevated WBC count of 17.3. Urinalysis showed dark brown urine, turbid with many bacteria, pyuria of 3916. Urine culture grew Citrobacter freundii, Enterococcus faecalis, and Pseudomonas aeruginosa, likely colonization in the setting of a suprapubic catheter with no indication to treat unless patient is having localizing urinary symptoms, which he currently denies. Chest X-ray shows no evidence of acute disease; however, patient has mild congestion with wet rales on examination. Plan: - Continue ceftriaxone, azithromycin, and oseltamivir. - Monitor procalcitonin levels. - Check sputum cultures for pneumonia. - Exchange [place] catheter as scheduled every month. - Follow up on blood cultures. Isolation Precautions: Standard Assessment and plan was discussed with the patient as written above Plan is subject to change pending incorporation of new incoming information/diagnostics. Updates may be added as addendum at the bottom (OR TOP) of this note Thank you for interesting consult. ID will continue to follow. Please contact Infectious disease for any questions or concerns. History: The patient's chart and medications were reviewed in detail and the patient was seen and examined. History obtained from: patient Mr. Crawford is a male with a past medical history of peripheral vascular disease, atherosclerotic coronary artery disease, hypertension, recurrent urinary tract infections, mild dementia, and COPD, who presents with a change in mentation, high fevers, and not feeling himself for the last two days. He was found to have Influenza A pneumonia. He denies smoking, alcohol, and IV drug use. He is largely bedbound and has a suprapubic catheter. Review of Systems: A complete 10 system review of systems was completed and neg ative except as noted in the HPI or here. ROS: - CONSTITUTIONAL: Reports high fevers, not feeling himself. - HEENT: Denies changes in vision and hearing. - RESPIRATORY: Reports shortness of breath. - CV: Denies palpitations and chest pain. - GI: Denies abdominal pain, nausea, vomiting, and diarrhea. - : Denies dysuria and urinary frequency. - MSK: Denies myalgia and joint pain. - SKIN: Denies rash and pruritus. - NEUROLOGICAL: Reports change in mentation. - PSYCHIATRIC: Denies recent changes in mood. Denies anxiety and depression. Past Medical History: Diagnosis Date Peripheral vascular disease Coronary artery disease Hypertension Recurrent urinary tract infections Mild dementia COPD Past Surgical History: History reviewed. No pertinent surgical history. Home Medications: Prior to Admission medications Medication Sig No home medications provided. Allergies: Allergies No Known Allergies Family History: Family history not provided. Social History: Socioeconomic History Marital status: Not on file Number of children: Not on file Years of education: Not on file Highest education level: Not on file Occupational History Not on file Tobacco Use Smoking status: Never smoked Substance and Sexual Activity Alcohol use: Never Drug use: Never Sexual activity: Not Currently Social History Narrative Not on file Social Determinants of Health No social determinants of health provided. Objective: Vital Signs on Arrival: Vital signs on arrival not provided. Most Recent Vital Signs: Temp: 98.7?F?BP: 142/92?Pulse: 65?Resp: 20?SpO?: 95% on 2?L/min oxygen Admission Weight: Not provided?BMI: Not provided Physical Exam: General: NAD Neck: Supple. No masses. HEENT: PERRL. Normal lids and conjunctiva. Moist mucous membranes. Oropharynx without lesions, exudates, or excessive erythema. Normal appearance of the external aspects of the nose and ears. Heart: Regular rhythm, normal rate. No murmur. No lower extremity edema. Lungs: Mild congestion with wet rales bilaterally. Abdomen: Soft. Non-tender. Non-distended. No masses or abdominal hernia. MSK: No digital cyanosis. Normal strength and tone in all 4 limbs. Skin: Warm and dry, no rashes. Neuro: Alert but disoriented. Mild confusion. No facial droop or slurred speech. Extra-ocular movements intact. Sensation intact to soft touch in all 4 limbs. Psych: Appears confused. Mood and affect difficult to assess. Oriented to person, place, time, and situation: No Diagnostic Studies: Available diagnostic studies were reviewed personally. Significant relevant results and findings are outlined below or addressed in the Assessment and Plan above. Laboratory Data: - Hemoglobin: 11.5?g/dL - WBC count: 17.3??10/L - Sodium: 148?mmol/L - Chloride: 111?mmol/L - Creatinine: 1.17?mg/dL - BUN: 14?mg/dL - Lactic acid: 1.6?mmol/L AST: 31?U/L ALT: 13?U/L - Alkaline phosphatase: 81?U/L Urinalysis: - Dark brown urine - Turbid - Many bacteria - Pyuria: 3916 Influenza A: Positive Imaging: Chest X-ray: - No evidence of acute disease in the chest - Mild congestion noted Urine Culture: - Citrobacter freundii - Enterococcus faecalis - Pseudomonas aeruginosa Sputum culture: Pending Blood cultures: Pending Plan discussed with: Patient DEDE MCKEON MD Jan 29, 2024 14:30
== END 2024-01-26 18:00 | DRG 698 ==
LOC: EDSEX 13:33 → ER 13:33 → EDBD 13:33 → OVERFLOW 17:13 → CENTRAL 23:19 → EAST 01-25 20:30
PROVIDERS: ADMIT Student in an Organized Health Care Education/Training Program; ATTEND Student in an Organized Health Care Education/Training Program
DX: T83.518A Infection and inflammatory reaction due to other urinary catheter, initial encounter (principal); G93.41 Metabolic encephalopathy; J96.00 Acute respiratory failure, unspecified whether with hypoxia or hypercapnia; N17.0 Acute kidney failure with tubular necrosis; J44.0 Chronic obstructive pulmonary disease with (acute) lower respiratory infection; N30.01 Acute cystitis with hematuria; E87.0 Hyperosmolality and hypernatremia; Z20.822 Contact with and (suspected) exposure to COVID-19; G30.9 Alzheimer's disease, unspecified; D69.6 Thrombocytopenia, unspecified; J84.10 Pulmonary fibrosis, unspecified; I48.91 Unspecified atrial fibrillation; I25.10 Atherosclerotic heart disease of native coronary artery without angina pectoris; F02.80 Dementia in other diseases classified elsewhere, unspecified severity, without behavioral disturbance, psychotic disturbance, mood disturbance, and anxiety; R62.7 Adult failure to thrive; I10 Essential (primary) hypertension; N28.1 Cyst of kidney, acquired; Z87.440 Personal history of urinary (tract) infections; I25.2 Old myocardial infarction; Z93.59 Other cystostomy status; Z74.01 Bed confinement status; Z79.01 Long term (current) use of anticoagulants; Z79.899 Other long term (current) drug therapy; Z68.33 Body mass index [BMI] 33.0-33.9, adult; J10.1 Influenza due to other identified influenza virus with other respiratory manifestations
CPT/HCPCS: 36415; 36600; 71045; 76775; 80048; 80053; 80076; 81001; 82805; 83605; 84443; 85025; 87040; 87086; 87088; 87186; 87426; 87804; 92610; 93306; 94640; 97163; G0378; J1885; J7042